=== PATIENT | female | born 1935 | race Caucasian/White ===

== ENCOUNTER → 2020-05-28 13:29 | Outpatient (BNVA) | payer MEDICARE, SELFPAY | PROVIDERS: PCP Internal Medicine; Referring Provider Internal Medicine; Visit Provider Internal Medicine | DX: Z95.2 Presence of prosthetic heart valve (principal); Z51.81 Encounter for therapeutic drug level monitoring; Z79.01 Long term (current) use of anticoagulants | CPT/HCPCS: 85610; 99211 ==

== ENCOUNTER 2020-06-01 12:33 | Outpatient (REF) | payer MEDICARE, SELFPAY ==
[2020-06-01 13:18] LABS: Hematocrit 41.7 % (37-47); Hemoglobin 12.7 g/dl (12.0-16.0); Mean Corpuscular HGB Conc 30.5 g/dl (31.0-35.0); Mean Corpuscular Hemoglobin 28.6 pg (27.0-33.0); Mean Corpuscular Volume 93.9 fL (80-98); Mean Platelet Volume 10.4 fL (9.4-12.3); Platelet Count 162 X10*3/uL (160-400); Red Blood Count 4.44 X10*6/uL (4.20-5.50); Red Cell Distribution Width 14.7 % (11.0-16.0); White Blood Count 7.2 X10*3/uL (4.8-10.8)
[2020-06-01 13:51] LABS: Alanine Aminotransferase 14 U/L (0-31); Albumin Level 3.5 g/dL (3.5-5.0); Alkaline Phosphatase 81 U/L (39-117); Anion Gap 11 (12-20); Aspartate Amino Transferase 20 U/L (5-31); Bilirubin Total 0.9 mg/dL (0.0-1.0); Blood Urea Nitrogen 32 mg/dL (9-16); Calcium 9.1 mg/dL (8.4-10.2); Carbon Dioxide 33 mmol/L (22-29); Chloride 105 mmol/L (96-108); Estimated Glomerular Filt Rate 52; Glucose Random 137 mg/dL (60-115); Magnesium 2.3 mg/dL (1.6-2.6); Potassium 4.6 mmol/l (3.3-5.1); Sodium 144 mmol/L (135-145)
== END 2020-06-01 12:34 | disposition home or self-care (01) ==
LOC: HO.LAB 12:33
PROVIDERS: PCP Internal Medicine; Visit Provider Internal Medicine
DX: I48.20 Chronic atrial fibrillation, unspecified (principal); I10 Essential (primary) hypertension; R73.01 Impaired fasting glucose
CPT/HCPCS: 36415; 80053; 83735; 85027; 85610; 99211

== ENCOUNTER → 2020-06-04 13:28 | Outpatient (BNVA) | payer MEDICARE, SELFPAY | PROVIDERS: PCP Internal Medicine; Visit Provider Internal Medicine | DX: Z95.2 Presence of prosthetic heart valve (principal); Z51.81 Encounter for therapeutic drug level monitoring; Z79.01 Long term (current) use of anticoagulants | CPT/HCPCS: 85610 ==

== ENCOUNTER → 2020-06-08 13:08 | Outpatient (BNVA) | payer MEDICARE, SELFPAY | PROVIDERS: PCP Internal Medicine; Visit Provider Internal Medicine | DX: Z95.2 Presence of prosthetic heart valve (principal); Z51.81 Encounter for therapeutic drug level monitoring; Z79.01 Long term (current) use of anticoagulants | CPT/HCPCS: 85610; 99211 ==

== ENCOUNTER → 2020-06-11 13:04 | Outpatient (BNVA) | payer MEDICARE, SELFPAY | PROVIDERS: PCP Internal Medicine; Visit Provider Internal Medicine | DX: Z95.2 Presence of prosthetic heart valve (principal); Z51.81 Encounter for therapeutic drug level monitoring; Z79.01 Long term (current) use of anticoagulants | CPT/HCPCS: 85610; 99211 ==

== ENCOUNTER → 2020-06-15 11:28 | Outpatient (BNVA) | payer MEDICARE, SELFPAY | PROVIDERS: PCP Internal Medicine; Visit Provider Internal Medicine | DX: Z95.2 Presence of prosthetic heart valve (principal); Z51.81 Encounter for therapeutic drug level monitoring; Z79.01 Long term (current) use of anticoagulants | CPT/HCPCS: 85610 ==

== ENCOUNTER → 2020-06-18 10:59 | Outpatient (BNVA) | payer MEDICARE, SELFPAY | PROVIDERS: PCP Internal Medicine; Referring Provider Internal Medicine; Visit Provider Internal Medicine | DX: Z95.2 Presence of prosthetic heart valve (principal); Z51.81 Encounter for therapeutic drug level monitoring; Z79.01 Long term (current) use of anticoagulants | CPT/HCPCS: 85610; 99211 ==

== ENCOUNTER → 2020-06-22 10:54 | Outpatient (BNVA) | payer MEDICARE, SELFPAY | PROVIDERS: PCP Internal Medicine; Visit Provider Internal Medicine | DX: Z95.2 Presence of prosthetic heart valve (principal); Z51.81 Encounter for therapeutic drug level monitoring; Z79.01 Long term (current) use of anticoagulants | CPT/HCPCS: 85610; 99211 ==

== ENCOUNTER → 2020-06-25 10:49 | Outpatient (BNVA) | payer MEDICARE, SELFPAY | PROVIDERS: PCP Internal Medicine; Visit Provider Internal Medicine | DX: Z95.2 Presence of prosthetic heart valve (principal); Z51.81 Encounter for therapeutic drug level monitoring; Z79.01 Long term (current) use of anticoagulants | CPT/HCPCS: 85610; 99211 ==

== ENCOUNTER → 2020-06-29 11:23 | Outpatient (BNVA) | payer MEDICARE, SELFPAY | PROVIDERS: PCP Internal Medicine; Visit Provider Internal Medicine | DX: Z95.2 Presence of prosthetic heart valve (principal); Z51.81 Encounter for therapeutic drug level monitoring; Z79.01 Long term (current) use of anticoagulants | CPT/HCPCS: 85610; 99211 ==

== ENCOUNTER → 2020-07-02 11:20 | Outpatient (BNVA) | payer MEDICARE, SELFPAY | PROVIDERS: PCP Internal Medicine; Visit Provider Internal Medicine | DX: Z95.2 Presence of prosthetic heart valve (principal); Z79.01 Long term (current) use of anticoagulants; Z51.81 Encounter for therapeutic drug level monitoring | CPT/HCPCS: 85610; 99211 ==

== ENCOUNTER → 2020-07-06 10:54 | Outpatient (BNVA) | payer MEDICARE, SELFPAY | PROVIDERS: PCP Internal Medicine; Visit Provider Internal Medicine | DX: Z95.2 Presence of prosthetic heart valve (principal); Z51.81 Encounter for therapeutic drug level monitoring; Z79.01 Long term (current) use of anticoagulants | CPT/HCPCS: 85610; 99211 ==

== ENCOUNTER → 2020-07-09 10:57 | Outpatient (BNVA) | payer MEDICARE, SELFPAY | PROVIDERS: PCP Internal Medicine; Visit Provider Internal Medicine | DX: Z95.2 Presence of prosthetic heart valve (principal); Z51.81 Encounter for therapeutic drug level monitoring; Z79.01 Long term (current) use of anticoagulants | CPT/HCPCS: 85610; 99211 ==

== ENCOUNTER → 2020-07-13 10:56 | Outpatient (BNVA) | payer MEDICARE, SELFPAY | PROVIDERS: PCP Internal Medicine; Visit Provider Internal Medicine | DX: Z95.2 Presence of prosthetic heart valve (principal); Z51.81 Encounter for therapeutic drug level monitoring; Z79.01 Long term (current) use of anticoagulants | CPT/HCPCS: 85610; 99211 ==

== ENCOUNTER → 2020-07-16 10:57 | Outpatient (BNVA) | payer MEDICARE, SELFPAY | PROVIDERS: PCP Internal Medicine; Visit Provider Internal Medicine | DX: Z95.2 Presence of prosthetic heart valve (principal); Z51.81 Encounter for therapeutic drug level monitoring; Z79.01 Long term (current) use of anticoagulants | CPT/HCPCS: 85610; 99211 ==

== ENCOUNTER → 2020-07-21 11:08 | Outpatient (BNVA) | payer MEDICARE, SELFPAY | PROVIDERS: PCP Internal Medicine; Visit Provider Internal Medicine | DX: Z95.2 Presence of prosthetic heart valve (principal); Z51.81 Encounter for therapeutic drug level monitoring; Z79.01 Long term (current) use of anticoagulants | CPT/HCPCS: 85610; 99211 ==

== ENCOUNTER → 2020-07-26 10:53 | Outpatient (BNVA) | payer MEDICARE, SELFPAY | PROVIDERS: PCP Internal Medicine; Visit Provider Internal Medicine | DX: Z95.2 Presence of prosthetic heart valve (principal); Z51.81 Encounter for therapeutic drug level monitoring; Z79.01 Long term (current) use of anticoagulants | CPT/HCPCS: 85610; 99211 ==

== ENCOUNTER → 2020-07-30 11:16 | Outpatient (BNVA) | payer MEDICARE, SELFPAY | PROVIDERS: PCP Internal Medicine; Visit Provider Internal Medicine | DX: Z95.2 Presence of prosthetic heart valve (principal); Z51.81 Encounter for therapeutic drug level monitoring; Z79.01 Long term (current) use of anticoagulants | CPT/HCPCS: 85610; 99211 ==

== ENCOUNTER → 2020-08-03 10:59 | Outpatient (BNVA) | payer MEDICARE, SELFPAY | PROVIDERS: PCP Internal Medicine; Visit Provider Internal Medicine | DX: Z95.2 Presence of prosthetic heart valve (principal); Z51.81 Encounter for therapeutic drug level monitoring; Z79.01 Long term (current) use of anticoagulants | CPT/HCPCS: 85610; 99211 ==

== ENCOUNTER → 2020-08-06 11:08 | Outpatient (BNVA) | payer MEDICARE, SELFPAY | PROVIDERS: PCP Internal Medicine; Visit Provider Internal Medicine | DX: Z95.2 Presence of prosthetic heart valve (principal); Z51.81 Encounter for therapeutic drug level monitoring; Z79.01 Long term (current) use of anticoagulants | CPT/HCPCS: 85610; 99211 ==

== ENCOUNTER → 2020-08-10 11:13 | Outpatient (BNVA) | payer MEDICARE, SELFPAY | PROVIDERS: PCP Internal Medicine; Visit Provider Internal Medicine | DX: Z95.2 Presence of prosthetic heart valve (principal); Z51.81 Encounter for therapeutic drug level monitoring; Z79.01 Long term (current) use of anticoagulants | CPT/HCPCS: 85610; 99211 ==

== ENCOUNTER → 2020-08-13 11:22 | Outpatient (BNVA) | payer MEDICARE, SELFPAY | PROVIDERS: PCP Internal Medicine; Visit Provider Internal Medicine | DX: Z95.2 Presence of prosthetic heart valve (principal); Z51.81 Encounter for therapeutic drug level monitoring; Z79.01 Long term (current) use of anticoagulants | CPT/HCPCS: 85610; 99211 ==

== ENCOUNTER → 2020-08-16 11:01 | Outpatient (BNVA) | payer MEDICARE, SELFPAY | PROVIDERS: PCP Internal Medicine; Visit Provider Internal Medicine | DX: Z95.2 Presence of prosthetic heart valve (principal); Z51.81 Encounter for therapeutic drug level monitoring; Z79.01 Long term (current) use of anticoagulants | CPT/HCPCS: 85610; 99211 ==

== ENCOUNTER → 2020-08-19 10:57 | Outpatient (BNVA) | payer MEDICARE, SELFPAY | PROVIDERS: PCP Internal Medicine; Visit Provider Internal Medicine | DX: Z95.2 Presence of prosthetic heart valve (principal); Z79.01 Long term (current) use of anticoagulants; Z51.81 Encounter for therapeutic drug level monitoring | CPT/HCPCS: 85610; 99211 ==

== ENCOUNTER → 2020-08-23 11:17 | Outpatient (BNVA) | payer MEDICARE, SELFPAY | PROVIDERS: PCP Internal Medicine; Visit Provider Internal Medicine | DX: Z95.2 Presence of prosthetic heart valve (principal); Z51.81 Encounter for therapeutic drug level monitoring; Z79.01 Long term (current) use of anticoagulants | CPT/HCPCS: 85610; 99211 ==

== ENCOUNTER → 2020-08-26 10:52 | Outpatient (BNVA) | payer MEDICARE, SELFPAY | PROVIDERS: PCP Internal Medicine; Visit Provider Internal Medicine | DX: Z95.2 Presence of prosthetic heart valve (principal); Z51.81 Encounter for therapeutic drug level monitoring; Z79.01 Long term (current) use of anticoagulants | CPT/HCPCS: 85610; 99211 ==

== ENCOUNTER → 2020-08-31 10:54 | Outpatient (BNVA) | payer MEDICARE, SELFPAY | PROVIDERS: PCP Internal Medicine; Visit Provider Internal Medicine | DX: Z95.2 Presence of prosthetic heart valve (principal); Z51.81 Encounter for therapeutic drug level monitoring; Z79.01 Long term (current) use of anticoagulants | CPT/HCPCS: 85610; 99211 ==

== ENCOUNTER → 2020-09-03 10:51 | Outpatient (BNVA) | payer MEDICARE, SELFPAY | PROVIDERS: PCP Internal Medicine; Visit Provider Internal Medicine | DX: Z95.2 Presence of prosthetic heart valve (principal); Z51.81 Encounter for therapeutic drug level monitoring; Z79.01 Long term (current) use of anticoagulants | CPT/HCPCS: 85610; 99211 ==

== ENCOUNTER → 2020-09-07 10:57 | Outpatient (BNVA) | payer MEDICARE, SELFPAY | PROVIDERS: PCP Internal Medicine; Visit Provider Internal Medicine | DX: Z95.2 Presence of prosthetic heart valve (principal); Z51.81 Encounter for therapeutic drug level monitoring; Z79.01 Long term (current) use of anticoagulants | CPT/HCPCS: 85610; 99211 ==

== ENCOUNTER → 2020-09-10 10:54 | Outpatient (BNVA) | payer MEDICARE, SELFPAY | PROVIDERS: PCP Internal Medicine; Visit Provider Internal Medicine | DX: Z95.2 Presence of prosthetic heart valve (principal); Z51.81 Encounter for therapeutic drug level monitoring; Z79.01 Long term (current) use of anticoagulants | CPT/HCPCS: 85610; 99211 ==

== ENCOUNTER → 2020-09-14 11:07 | Outpatient (BNVA) | payer MEDICARE, SELFPAY | PROVIDERS: PCP Internal Medicine; Visit Provider Internal Medicine | DX: Z95.2 Presence of prosthetic heart valve (principal); Z51.81 Encounter for therapeutic drug level monitoring; Z79.01 Long term (current) use of anticoagulants | CPT/HCPCS: 85610; 99211 ==

== ENCOUNTER → 2020-09-17 10:57 | Outpatient (BNVA) | payer MEDICARE, SELFPAY | PROVIDERS: PCP Internal Medicine; Visit Provider Internal Medicine | DX: Z95.2 Presence of prosthetic heart valve (principal); Z51.81 Encounter for therapeutic drug level monitoring; Z79.01 Long term (current) use of anticoagulants | CPT/HCPCS: 85610; 99211 ==

== ENCOUNTER → 2020-09-21 11:09 | Outpatient (BNVA) | payer MEDICARE, SELFPAY | PROVIDERS: PCP Internal Medicine; Visit Provider Internal Medicine | DX: Z95.2 Presence of prosthetic heart valve (principal); Z51.81 Encounter for therapeutic drug level monitoring; Z79.01 Long term (current) use of anticoagulants | CPT/HCPCS: 85610; 99211 ==

== ENCOUNTER → 2020-09-24 10:54 | Outpatient (BNVA) | payer MEDICARE, SELFPAY | PROVIDERS: PCP Internal Medicine; Visit Provider Internal Medicine | DX: Z95.2 Presence of prosthetic heart valve (principal); Z51.81 Encounter for therapeutic drug level monitoring; Z79.01 Long term (current) use of anticoagulants | CPT/HCPCS: 85610; 99211 ==

== ENCOUNTER → 2020-09-28 10:38 | Outpatient (BNVA) | payer MEDICARE, SELFPAY | PROVIDERS: PCP Internal Medicine; Visit Provider Internal Medicine | DX: Z95.2 Presence of prosthetic heart valve (principal); Z51.81 Encounter for therapeutic drug level monitoring; Z79.01 Long term (current) use of anticoagulants | CPT/HCPCS: 85610; 99211 ==

== ENCOUNTER → 2020-10-01 10:47 | Outpatient (BNVA) | payer MEDICARE, SELFPAY | PROVIDERS: PCP Internal Medicine; Visit Provider Internal Medicine | DX: Z95.2 Presence of prosthetic heart valve (principal); Z51.81 Encounter for therapeutic drug level monitoring; Z79.01 Long term (current) use of anticoagulants | CPT/HCPCS: 85610; 99211 ==

== ENCOUNTER → 2020-10-05 10:54 | Outpatient (BNVA) | payer MEDICARE, SELFPAY | PROVIDERS: PCP Internal Medicine; Visit Provider Internal Medicine | DX: Z95.2 Presence of prosthetic heart valve (principal); Z51.81 Encounter for therapeutic drug level monitoring; Z79.01 Long term (current) use of anticoagulants | CPT/HCPCS: 85610; 99211 ==

== ENCOUNTER → 2020-10-08 10:16 | Outpatient (BNVA) | payer MEDICARE, SELFPAY | PROVIDERS: PCP Internal Medicine; Visit Provider Internal Medicine Cardiovascular Disease | DX: Z45.018 Encounter for adjustment and management of other part of cardiac pacemaker (principal); I50.9 Heart failure, unspecified; I42.9 Cardiomyopathy, unspecified; I48.20 Chronic atrial fibrillation, unspecified; Z95.2 Presence of prosthetic heart valve | CPT/HCPCS: 85610; 93005; 99211; 99212 ==

== ENCOUNTER → 2020-10-12 10:51 | Outpatient (BNVA) | payer MEDICARE, SELFPAY | PROVIDERS: PCP Internal Medicine; Visit Provider Internal Medicine | DX: Z95.2 Presence of prosthetic heart valve (principal); Z51.81 Encounter for therapeutic drug level monitoring; Z79.01 Long term (current) use of anticoagulants | CPT/HCPCS: 85610; 99211 ==

== ENCOUNTER → 2020-10-15 10:51 | Outpatient (BNVA) | payer MEDICARE, SELFPAY | PROVIDERS: PCP Internal Medicine; Visit Provider Internal Medicine | DX: Z95.2 Presence of prosthetic heart valve (principal); Z51.81 Encounter for therapeutic drug level monitoring; Z79.01 Long term (current) use of anticoagulants | CPT/HCPCS: 85610; 99211 ==

== ENCOUNTER 2020-10-19 10:09 | Outpatient (REF) | payer MEDICARE, SELFPAY ==
[2020-10-19 11:11] LABS: Anion Gap 10 (12-20); Blood Urea Nitrogen 30 mg/dL (9-16); Calcium 8.9 mg/dL (8.4-10.2); Carbon Dioxide 34 mmol/L (22-29); Chloride 106 mmol/L (96-108); Estimated Glomerular Filt Rate 55; Glucose Random 133 mg/dL (60-115); Potassium 4.2 mmol/L (3.3-5.1); Sodium 146 mmol/L (135-145)
== END 2020-10-19 10:10 | disposition home or self-care (01) ==
LOC: HO.LAB 10:09
PROVIDERS: PCP Internal Medicine; Visit Provider Internal Medicine
DX: I10 Essential (primary) hypertension (principal); N28.9 Disorder of kidney and ureter, unspecified
CPT/HCPCS: 36415; 80048; 85610; 99211

== ENCOUNTER → 2020-10-22 11:00 | Outpatient (BNVA) | payer MEDICARE, SELFPAY | PROVIDERS: PCP Internal Medicine; Visit Provider Internal Medicine | DX: Z95.2 Presence of prosthetic heart valve (principal); Z51.81 Encounter for therapeutic drug level monitoring; Z79.01 Long term (current) use of anticoagulants | CPT/HCPCS: 85610; 99211 ==

== ENCOUNTER → 2020-10-26 10:45 | Outpatient (BNVA) | payer MEDICARE, SELFPAY | PROVIDERS: PCP Internal Medicine; Visit Provider Internal Medicine | DX: Z95.2 Presence of prosthetic heart valve (principal); Z51.81 Encounter for therapeutic drug level monitoring; Z79.01 Long term (current) use of anticoagulants | CPT/HCPCS: 85610; 99211 ==

== ENCOUNTER → 2020-10-29 10:54 | Outpatient (BNVA) | payer MEDICARE, SELFPAY | PROVIDERS: PCP Internal Medicine; Visit Provider Internal Medicine | DX: Z95.2 Presence of prosthetic heart valve (principal); Z51.81 Encounter for therapeutic drug level monitoring; Z79.01 Long term (current) use of anticoagulants | CPT/HCPCS: 85610; 99211 ==

== ENCOUNTER 2020-10-29 22:15 | Emergency (ER) | payer MEDICARE, SELFPAY ==
--- NOTE | ~2020-10-29 | XR_ITS ---
EXAMINATION: XR ELBOW, LEFT CLINICAL INFORMATION: Fall COMPARISON: None TECHNIQUE: AP, lateral, and oblique views of the left elbow. FINDINGS: No acute fracture is seen. There is some amorphous calcification seen adjacent to the lateral epicondyles (see langley images) which could be related to tendinitis. XR/XR elbow LT 2V IMPRESSION: No evidence of an acute injury. Calcification adjacent to lateral epicondyle suggestive of lateral epicondylitis/tennis elbow.
[2020-10-29 22:31] VITALS: BP 140/45; PULSE 59; RESP 16; TEMP 36.6; O2SAT 99; BMI 20.8
--- NOTE | 2020-10-29 22:38 | ED.FALL ---
HPI - Fall General Chief Complaint: Fall Stated Complaint: Fall Time Seen by Provider: 10/29/20 22:29 Source: family Mode of arrival: wheelchair Limitations: physical limitation History of Present Illness HPI Narrative: Patient wheelchair bound with right MCA CVA dementia was with her caregiver lean forward in her chair and fell forward without any significant head injury denies any pain anywhere in the ER patient was able to stand up with help on her feet without any significant pain complaint: fall Related Data Home Medications Medication Instructions Recorded Confirmed atorvastatin 40 mg tablet 40 mg PO DAILY 06/29/20 10/22/20 losartan 25 mg tablet 25 mg PO DAILY 06/29/20 10/22/20 metoprolol tartrate 50 mg tablet 50 mg PO BID 06/29/20 10/22/20 omeprazole 20 mg capsule,delayed 20 mg PO DAILY 06/29/20 10/22/20 release Previous Rx's Medication Instructions Recorded warfarin 2 mg tablet 2 mg PO DAILY #90 tab 05/28/20 warfarin 3 mg tablet 3 mg PO DAILY #90 tab 06/08/20 furosemide 40 mg tablet 40 mg PO DAILY #30 tab 10/08/20 Allergies Allergy/AdvReac Type Severity Reaction Status Date / Time No Known Allergies Allergy Verified 10/29/20 22:34 [No Known Allergies*] Review of Systems Review of Systems: Yes all other systems are reviewed and are negative [facility] Past Medical History Medical History Cardiac pacemaker in situ Cardiomyopathy 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 Social History Social History Smoking Status: Never smoker Use of substances other than those prescribed or required for medical reasons: No Advance Directives: No Physical Exam Vital Signs: Vital Signs: Last Vital Signs Temp 97.9 F 10/29/20 22:31 Pulse 59 10/29/20 22:31 Resp 16 10/29/20 22:31 BP 140/45 H 10/29/20 22:31 Pulse Ox 99 10/29/20 22:31 Body Mass Index 20.8 Const: General: comfortable and no acute distress Orientation/consciousness: oriented to person and oriented to place HENMT: Head: Yes normocephalic and Yes atraumatic Ears: hearing grossly normal bilaterally General nose exam: Normal external nose present Eyes: General: appearance normal, both eyes and all related structures Pupils: Equal, round and reactive pupils present Neck: Neck: Yes normal visual inspection and Yes full ROM Chest: Chest palpation & inspection: normal inspection of the chest and normal palpation of entire chest wall Resp: Effort & Inspection: normal respiratory effort Auscultation: clear to auscultation bilaterally, no crackles and no rales Cardio: Palpation: normal PMI Rate: regular rate Rhythm: regular rhythm Heart sounds: S1 normal heart sound present and S2 normal heart sound present Peripheral pulses: Peripheral pulses 2+ throughout GI: Inspection: Yes normal to inspection Palpation (GI): Soft to palpation and nontender Auscultation: normal bowel sounds Back/Spine/Pelvis: Cervical Spine: cervical ROM normal Thoracic/Lumbar Spine: No thoracic spinal tenderness and No lumbar spinal tenderness Skin: General skin exam: no rashes or lesions noted Neuro: General: oriented to person, oriented to place and other (Left residual hemiparetic) Cranial nerves: Yes Equal, round and reactive pupils present Extrem: Right upper extremity: no joint enlargement Left upper extremity: normal to inspection Shoulder/upper arm images: 1. Small bruise left elbow, good range of movement no focal tenderness MDM - Fall MDM Narrative Medical decision making narrative: Patient's mechanical fall with no significant injuries x-ray of the left elbow is negative for any fracture pelvis is stable will discharge patient home Discharge Plan Discharge Clinical Impression: Fall Qualifiers: Encounter type: initial encounter Qualified Code(s): W19.XXXA - Unspecified fall, initial encounter Patient Disposition: Home, Self-Care Instructions: Fall Prevention (ED) Additional Instructions: Care and cautions as advised Prescriptions: No Action warfarin 2 mg tablet 2 mg PO DAILY Qty: 90 RF: 0 furosemide [Lasix] 40 mg tablet 40 mg PO DAILY Qty: 30 RF: 0 warfarin 3 mg tablet 3 mg PO DAILY Qty: 90 RF: 0 losartan 25 mg tablet 25 mg PO DAILY RF: 0 atorvastatin 40 mg tablet 40 mg PO DAILY RF: 0 omeprazole 20 mg capsule,delayed release(DR/EC) 20 mg PO DAILY RF: 0 metoprolol tartrate 50 mg tablet 50 mg PO BID RF: 0
== END 2020-10-30 00:42 | disposition home or self-care (01) ==
PROVIDERS: Emergency Provider Internal Medicine; PCP Internal Medicine
DX: S50.02XA Contusion of left elbow, initial encounter (principal); W05.0XXA Fall from non-moving wheelchair, initial encounter; F03.90 Unspecified dementia, unspecified severity, without behavioral disturbance, psychotic disturbance, mood disturbance, and anxiety; I48.20 Chronic atrial fibrillation, unspecified; I50.9 Heart failure, unspecified; Y93.9 Activity, unspecified; Y92.019 Unspecified place in single-family (private) house as the place of occurrence of the external cause; Y99.9 Unspecified external cause status; Z95.0 Presence of cardiac pacemaker; Z86.73 Personal history of transient ischemic attack (TIA), and cerebral infarction without residual deficits; Z79.01 Long term (current) use of anticoagulants
CPT/HCPCS: 73070; 99283; 99284

== ENCOUNTER → 2020-11-02 10:52 | Outpatient (BNVA) | payer MEDICARE, SELFPAY | PROVIDERS: PCP Internal Medicine; Visit Provider Internal Medicine | DX: Z95.2 Presence of prosthetic heart valve (principal); Z51.81 Encounter for therapeutic drug level monitoring; Z79.01 Long term (current) use of anticoagulants | CPT/HCPCS: 85610; 99211 ==

== ENCOUNTER → 2020-11-05 10:55 | Outpatient (BNVA) | payer MEDICARE, SELFPAY | PROVIDERS: PCP Internal Medicine; Visit Provider Internal Medicine | DX: Z95.2 Presence of prosthetic heart valve (principal); Z51.81 Encounter for therapeutic drug level monitoring; Z79.01 Long term (current) use of anticoagulants | CPT/HCPCS: 85610; 99211 ==

== ENCOUNTER → 2020-11-09 10:56 | Outpatient (BNVA) | payer MEDICARE, SELFPAY | PROVIDERS: PCP Internal Medicine; Visit Provider Internal Medicine | DX: Z95.2 Presence of prosthetic heart valve (principal); Z51.81 Encounter for therapeutic drug level monitoring; Z79.01 Long term (current) use of anticoagulants | CPT/HCPCS: 85610; 99211 ==

== ENCOUNTER → 2020-11-12 10:57 | Outpatient (BNVA) | payer MEDICARE, SELFPAY | PROVIDERS: PCP Internal Medicine; Visit Provider Internal Medicine | DX: Z95.2 Presence of prosthetic heart valve (principal); Z51.81 Encounter for therapeutic drug level monitoring; Z79.01 Long term (current) use of anticoagulants | CPT/HCPCS: 85610; 99211 ==

== ENCOUNTER → 2020-11-16 11:02 | Outpatient (BNVA) | payer MEDICARE, SELFPAY | PROVIDERS: PCP Internal Medicine; Visit Provider Internal Medicine | DX: Z95.2 Presence of prosthetic heart valve (principal); Z51.81 Encounter for therapeutic drug level monitoring; Z79.01 Long term (current) use of anticoagulants | CPT/HCPCS: 85610; 99211 ==

== ENCOUNTER → 2020-11-19 10:52 | Outpatient (BNVA) | payer MEDICARE, SELFPAY | PROVIDERS: PCP Internal Medicine; Visit Provider Internal Medicine | DX: Z95.2 Presence of prosthetic heart valve (principal); Z51.81 Encounter for therapeutic drug level monitoring; Z79.01 Long term (current) use of anticoagulants | CPT/HCPCS: 85610; 99211 ==

== ENCOUNTER → 2020-11-23 10:56 | Outpatient (BNVA) | payer MEDICARE, SELFPAY | PROVIDERS: PCP Internal Medicine; Visit Provider Internal Medicine | DX: Z95.2 Presence of prosthetic heart valve (principal); Z51.81 Encounter for therapeutic drug level monitoring; Z79.01 Long term (current) use of anticoagulants | CPT/HCPCS: 85610; 99211 ==

== ENCOUNTER → 2020-11-26 11:01 | Outpatient (BNVA) | payer MEDICARE, SELFPAY | PROVIDERS: PCP Internal Medicine; Visit Provider Internal Medicine | DX: Z95.2 Presence of prosthetic heart valve (principal); Z79.01 Long term (current) use of anticoagulants; Z51.81 Encounter for therapeutic drug level monitoring | CPT/HCPCS: 85610; 99211 ==

== ENCOUNTER → 2020-11-30 11:06 | Outpatient (BNVA) | payer MEDICARE, SELFPAY | PROVIDERS: PCP Internal Medicine; Visit Provider Internal Medicine | DX: Z95.2 Presence of prosthetic heart valve (principal); Z79.01 Long term (current) use of anticoagulants; Z51.81 Encounter for therapeutic drug level monitoring | CPT/HCPCS: 85610; 99211 ==

== ENCOUNTER → 2020-12-03 10:53 | Outpatient (BNVA) | payer MEDICARE, SELFPAY | PROVIDERS: PCP Internal Medicine; Visit Provider Internal Medicine | DX: Z95.2 Presence of prosthetic heart valve (principal); Z79.01 Long term (current) use of anticoagulants; Z51.81 Encounter for therapeutic drug level monitoring | CPT/HCPCS: 85610; 99211 ==

== ENCOUNTER → 2020-12-07 11:04 | Outpatient (BNVA) | payer MEDICARE, SELFPAY | PROVIDERS: PCP Internal Medicine; Visit Provider Internal Medicine | DX: Z95.2 Presence of prosthetic heart valve (principal); Z79.01 Long term (current) use of anticoagulants; Z51.81 Encounter for therapeutic drug level monitoring | CPT/HCPCS: 85610; 99211 ==

== ENCOUNTER → 2020-12-10 11:03 | Outpatient (BNVA) | payer MEDICARE, SELFPAY | PROVIDERS: PCP Internal Medicine; Visit Provider Internal Medicine | DX: Z95.2 Presence of prosthetic heart valve (principal); Z79.01 Long term (current) use of anticoagulants; Z51.81 Encounter for therapeutic drug level monitoring | CPT/HCPCS: 85610; 99211 ==

== ENCOUNTER → 2020-12-14 15:25 | Outpatient (BNVA) | payer MEDICARE, SELFPAY | PROVIDERS: PCP Internal Medicine; Visit Provider Internal Medicine | DX: Z95.2 Presence of prosthetic heart valve (principal); Z79.01 Long term (current) use of anticoagulants; Z51.81 Encounter for therapeutic drug level monitoring | CPT/HCPCS: 85610; 99211 ==

== ENCOUNTER → 2020-12-17 15:27 | Outpatient (BNVA) | payer MEDICARE, SELFPAY | PROVIDERS: PCP Internal Medicine; Visit Provider Internal Medicine | DX: Z95.2 Presence of prosthetic heart valve (principal); Z79.01 Long term (current) use of anticoagulants; Z51.81 Encounter for therapeutic drug level monitoring | CPT/HCPCS: 85610; 99211 ==

== ENCOUNTER → 2020-12-21 10:49 | Outpatient (BNVA) | payer MEDICARE, SELFPAY | PROVIDERS: PCP Internal Medicine; Visit Provider Internal Medicine | DX: Z95.2 Presence of prosthetic heart valve (principal); Z51.81 Encounter for therapeutic drug level monitoring; Z79.01 Long term (current) use of anticoagulants | CPT/HCPCS: 85610; 99211 ==

== ENCOUNTER → 2020-12-24 11:02 | Outpatient (BNVA) | payer MEDICARE, SELFPAY | PROVIDERS: PCP Internal Medicine; Visit Provider Internal Medicine | DX: Z95.2 Presence of prosthetic heart valve (principal); Z51.81 Encounter for therapeutic drug level monitoring; Z79.01 Long term (current) use of anticoagulants | CPT/HCPCS: 85610; 99211 ==

== ENCOUNTER → 2020-12-28 10:57 | Outpatient (BNVA) | payer MEDICARE, SELFPAY | PROVIDERS: PCP Internal Medicine; Visit Provider Internal Medicine | DX: Z95.2 Presence of prosthetic heart valve (principal); Z51.81 Encounter for therapeutic drug level monitoring; Z79.01 Long term (current) use of anticoagulants | CPT/HCPCS: 85610; 99211 ==

== ENCOUNTER → 2020-12-30 10:40 | Outpatient (BNVA) | payer MEDICARE, SELFPAY | PROVIDERS: PCP Internal Medicine; Referring Provider Internal Medicine; Visit Provider Internal Medicine Cardiovascular Disease ==

== ENCOUNTER → 2020-12-31 10:51 | Outpatient (BNVA) | payer MEDICARE, SELFPAY | PROVIDERS: PCP Internal Medicine; Visit Provider Internal Medicine | DX: Z95.2 Presence of prosthetic heart valve (principal); Z79.01 Long term (current) use of anticoagulants; Z51.81 Encounter for therapeutic drug level monitoring | CPT/HCPCS: 85610; 99211 ==

== ENCOUNTER → 2021-01-04 11:08 | Outpatient (BNVA) | payer MEDICARE, SELFPAY | PROVIDERS: PCP Internal Medicine; Visit Provider Internal Medicine | DX: Z95.2 Presence of prosthetic heart valve (principal); Z51.81 Encounter for therapeutic drug level monitoring; Z79.01 Long term (current) use of anticoagulants | CPT/HCPCS: 85610; 99211 ==

== ENCOUNTER → 2021-01-07 11:06 | Outpatient (BNVA) | payer MEDICARE, SELFPAY | PROVIDERS: PCP Internal Medicine; Visit Provider Internal Medicine | DX: Z95.2 Presence of prosthetic heart valve (principal); Z51.81 Encounter for therapeutic drug level monitoring; Z79.01 Long term (current) use of anticoagulants | CPT/HCPCS: 85610; 99211 ==

== ENCOUNTER → 2021-01-11 10:58 | Outpatient (BNVA) | payer MEDICARE, SELFPAY | PROVIDERS: PCP Internal Medicine; Visit Provider Internal Medicine | DX: Z95.2 Presence of prosthetic heart valve (principal); Z51.81 Encounter for therapeutic drug level monitoring; Z79.01 Long term (current) use of anticoagulants | CPT/HCPCS: 85610; 99211 ==

== ENCOUNTER → 2021-01-14 10:53 | Outpatient (BNVA) | payer MEDICARE, SELFPAY | PROVIDERS: PCP Internal Medicine; Visit Provider Internal Medicine | DX: Z95.2 Presence of prosthetic heart valve (principal); Z51.81 Encounter for therapeutic drug level monitoring; Z79.01 Long term (current) use of anticoagulants | CPT/HCPCS: 85610; 99211 ==

== ENCOUNTER → 2021-01-18 11:05 | Outpatient (BNVA) | payer MEDICARE, SELFPAY | PROVIDERS: PCP Internal Medicine; Visit Provider Internal Medicine | DX: Z95.2 Presence of prosthetic heart valve (principal); Z51.81 Encounter for therapeutic drug level monitoring; Z79.01 Long term (current) use of anticoagulants | CPT/HCPCS: 85610; 99211 ==

== ENCOUNTER → 2021-01-21 11:00 | Outpatient (BNVA) | payer MEDICARE, SELFPAY | PROVIDERS: PCP Internal Medicine; Visit Provider Internal Medicine | DX: Z95.2 Presence of prosthetic heart valve (principal); Z51.81 Encounter for therapeutic drug level monitoring; Z79.01 Long term (current) use of anticoagulants | CPT/HCPCS: 85610; 99211 ==

== ENCOUNTER → 2021-01-25 10:56 | Outpatient (BNVA) | payer MEDICARE, SELFPAY | PROVIDERS: PCP Internal Medicine; Visit Provider Internal Medicine | DX: Z95.2 Presence of prosthetic heart valve (principal); Z51.81 Encounter for therapeutic drug level monitoring; Z79.01 Long term (current) use of anticoagulants | CPT/HCPCS: 85610; 99211 ==

== ENCOUNTER → 2021-01-28 11:02 | Outpatient (BNVA) | payer MEDICARE, SELFPAY | PROVIDERS: PCP Internal Medicine; Visit Provider Internal Medicine | DX: Z95.2 Presence of prosthetic heart valve (principal); Z51.81 Encounter for therapeutic drug level monitoring; Z79.01 Long term (current) use of anticoagulants | CPT/HCPCS: 85610; 99211 ==

== ENCOUNTER → 2021-02-01 10:56 | Outpatient (BNVA) | payer MEDICARE, SELFPAY | PROVIDERS: PCP Internal Medicine; Visit Provider Internal Medicine | DX: Z95.2 Presence of prosthetic heart valve (principal); Z51.81 Encounter for therapeutic drug level monitoring; Z79.01 Long term (current) use of anticoagulants | CPT/HCPCS: 85610; 99211 ==

== ENCOUNTER → 2021-02-04 10:55 | Outpatient (BNVA) | payer MEDICARE, SELFPAY | PROVIDERS: PCP Internal Medicine; Visit Provider Internal Medicine | DX: Z95.2 Presence of prosthetic heart valve (principal); Z51.81 Encounter for therapeutic drug level monitoring; Z79.01 Long term (current) use of anticoagulants | CPT/HCPCS: 85610; 99211 ==

== ENCOUNTER → 2021-02-08 11:04 | Outpatient (BNVA) | payer MEDICARE, SELFPAY | PROVIDERS: PCP Internal Medicine; Visit Provider Internal Medicine | DX: Z95.2 Presence of prosthetic heart valve (principal); Z51.81 Encounter for therapeutic drug level monitoring; Z79.01 Long term (current) use of anticoagulants | CPT/HCPCS: 85610; 99211 ==

== ENCOUNTER → 2021-02-11 10:55 | Outpatient (BNVA) | payer MEDICARE, SELFPAY | PROVIDERS: PCP Internal Medicine; Visit Provider Internal Medicine | DX: Z95.2 Presence of prosthetic heart valve (principal); Z51.81 Encounter for therapeutic drug level monitoring; Z79.01 Long term (current) use of anticoagulants | CPT/HCPCS: 85610; 99211 ==

== ENCOUNTER → 2021-02-15 15:12 | Outpatient (BNVA) | payer MEDICARE, SELFPAY | PROVIDERS: PCP Internal Medicine; Visit Provider Internal Medicine | DX: Z95.2 Presence of prosthetic heart valve (principal); Z51.81 Encounter for therapeutic drug level monitoring; Z79.01 Long term (current) use of anticoagulants | CPT/HCPCS: 85610; 99211 ==

== ENCOUNTER → 2021-02-18 15:25 | Outpatient (BNVA) | payer MEDICARE, SELFPAY | PROVIDERS: PCP Internal Medicine; Visit Provider Internal Medicine | DX: Z95.2 Presence of prosthetic heart valve (principal); Z51.81 Encounter for therapeutic drug level monitoring; Z79.01 Long term (current) use of anticoagulants | CPT/HCPCS: 85610; 99211 ==

== ENCOUNTER → 2021-02-22 15:25 | Outpatient (BNVA) | payer MEDICARE, SELFPAY | PROVIDERS: PCP Internal Medicine; Visit Provider Internal Medicine | DX: Z95.2 Presence of prosthetic heart valve (principal); Z51.81 Encounter for therapeutic drug level monitoring; Z79.01 Long term (current) use of anticoagulants | CPT/HCPCS: 85610; 99211 ==

== ENCOUNTER → 2021-02-25 15:19 | Outpatient (BNVA) | payer MEDICARE, SELFPAY | PROVIDERS: PCP Internal Medicine; Visit Provider Internal Medicine | DX: Z95.2 Presence of prosthetic heart valve (principal); Z51.81 Encounter for therapeutic drug level monitoring; Z79.01 Long term (current) use of anticoagulants | CPT/HCPCS: 85610; 99211 ==

== ENCOUNTER → 2021-03-01 15:31 | Outpatient (BNVA) | payer MEDICARE, SELFPAY | PROVIDERS: PCP Internal Medicine; Visit Provider Internal Medicine | DX: Z95.2 Presence of prosthetic heart valve (principal); Z51.81 Encounter for therapeutic drug level monitoring; Z79.01 Long term (current) use of anticoagulants | CPT/HCPCS: 85610; 99211 ==

== ENCOUNTER → 2021-03-04 15:20 | Outpatient (BNVA) | payer MEDICARE, SELFPAY | PROVIDERS: PCP Internal Medicine; Visit Provider Internal Medicine | DX: Z95.2 Presence of prosthetic heart valve (principal); Z51.81 Encounter for therapeutic drug level monitoring; Z79.01 Long term (current) use of anticoagulants | CPT/HCPCS: 85610; 99211 ==

== ENCOUNTER → 2021-03-08 15:11 | Outpatient (BNVA) | payer MEDICARE, SELFPAY | PROVIDERS: PCP Internal Medicine; Visit Provider Internal Medicine | DX: Z95.2 Presence of prosthetic heart valve (principal); Z51.81 Encounter for therapeutic drug level monitoring; Z79.01 Long term (current) use of anticoagulants | CPT/HCPCS: 85610; 99211 ==

== ENCOUNTER → 2021-03-11 15:09 | Outpatient (BNVA) | payer MEDICARE, SELFPAY | PROVIDERS: PCP Internal Medicine; Visit Provider Internal Medicine | DX: Z95.2 Presence of prosthetic heart valve (principal); Z51.81 Encounter for therapeutic drug level monitoring; Z79.01 Long term (current) use of anticoagulants | CPT/HCPCS: 85610; 99211 ==

== ENCOUNTER → 2021-03-15 15:25 | Outpatient (BNVA) | payer MEDICARE, SELFPAY | PROVIDERS: PCP Internal Medicine; Visit Provider Internal Medicine | DX: Z95.2 Presence of prosthetic heart valve (principal); Z51.81 Encounter for therapeutic drug level monitoring; Z79.01 Long term (current) use of anticoagulants | CPT/HCPCS: 85610; 99211 ==

== ENCOUNTER → 2021-03-18 15:45 | Outpatient (BNVA) | payer MEDICARE, SELFPAY | PROVIDERS: PCP Internal Medicine; Visit Provider Internal Medicine | DX: Z95.2 Presence of prosthetic heart valve (principal); Z51.81 Encounter for therapeutic drug level monitoring; Z79.01 Long term (current) use of anticoagulants | CPT/HCPCS: 85610; 99211 ==

== ENCOUNTER → 2021-03-22 15:27 | Outpatient (BNVA) | payer MEDICARE, SELFPAY | PROVIDERS: PCP Internal Medicine; Visit Provider Internal Medicine | DX: Z95.2 Presence of prosthetic heart valve (principal); Z51.81 Encounter for therapeutic drug level monitoring; Z79.01 Long term (current) use of anticoagulants | CPT/HCPCS: 85610; 99211 ==

== ENCOUNTER → 2021-03-25 15:28 | Outpatient (BNVA) | payer MEDICARE, SELFPAY | PROVIDERS: PCP Internal Medicine; Visit Provider Internal Medicine | DX: Z95.2 Presence of prosthetic heart valve (principal); Z51.81 Encounter for therapeutic drug level monitoring; Z79.01 Long term (current) use of anticoagulants | CPT/HCPCS: 85610; 99211 ==

== ENCOUNTER → 2021-03-29 15:30 | Outpatient (BNVA) | payer MEDICARE, SELFPAY | PROVIDERS: PCP Internal Medicine; Visit Provider Internal Medicine | DX: Z95.2 Presence of prosthetic heart valve (principal); Z51.81 Encounter for therapeutic drug level monitoring; Z79.01 Long term (current) use of anticoagulants | CPT/HCPCS: 85610; 99211 ==

== ENCOUNTER → 2021-04-01 15:21 | Outpatient (BNVA) | payer MEDICARE, SELFPAY | PROVIDERS: PCP Internal Medicine; Visit Provider Internal Medicine | DX: Z95.2 Presence of prosthetic heart valve (principal); Z51.81 Encounter for therapeutic drug level monitoring; Z79.01 Long term (current) use of anticoagulants | CPT/HCPCS: 85610; 99211 ==

== ENCOUNTER → 2021-04-05 15:33 | Outpatient (BNVA) | payer MEDICARE, SELFPAY | PROVIDERS: PCP Internal Medicine; Visit Provider Internal Medicine | DX: Z95.2 Presence of prosthetic heart valve (principal); Z51.81 Encounter for therapeutic drug level monitoring; Z79.01 Long term (current) use of anticoagulants | CPT/HCPCS: 85610; 99211 ==

== ENCOUNTER → 2021-04-08 15:14 | Outpatient (BNVA) | payer MEDICARE, SELFPAY | PROVIDERS: PCP Internal Medicine; Visit Provider Internal Medicine | DX: Z95.2 Presence of prosthetic heart valve (principal); Z51.81 Encounter for therapeutic drug level monitoring; Z79.01 Long term (current) use of anticoagulants | CPT/HCPCS: 85610; 99211 ==

== ENCOUNTER → 2021-04-12 15:16 | Outpatient (BNVA) | payer MEDICARE, SELFPAY | PROVIDERS: PCP Internal Medicine; Visit Provider Internal Medicine | DX: Z95.2 Presence of prosthetic heart valve (principal); Z51.81 Encounter for therapeutic drug level monitoring; Z79.01 Long term (current) use of anticoagulants | CPT/HCPCS: 85610; 99211 ==

== ENCOUNTER → 2021-04-15 15:22 | Outpatient (BNVA) | payer MEDICARE, SELFPAY | PROVIDERS: PCP Internal Medicine; Visit Provider Internal Medicine | DX: Z95.2 Presence of prosthetic heart valve (principal); Z51.81 Encounter for therapeutic drug level monitoring; Z79.01 Long term (current) use of anticoagulants | CPT/HCPCS: 85610; 99211 ==

== ENCOUNTER → 2021-04-19 15:30 | Outpatient (BNVA) | payer MEDICARE, SELFPAY | PROVIDERS: PCP Internal Medicine; Visit Provider Internal Medicine | DX: Z95.2 Presence of prosthetic heart valve (principal); Z51.81 Encounter for therapeutic drug level monitoring; Z79.01 Long term (current) use of anticoagulants | CPT/HCPCS: 85610; 99211 ==

== ENCOUNTER → 2021-04-22 15:25 | Outpatient (BNVA) | payer MEDICARE, SELFPAY | PROVIDERS: PCP Internal Medicine; Visit Provider Internal Medicine | DX: Z95.2 Presence of prosthetic heart valve (principal); Z51.81 Encounter for therapeutic drug level monitoring; Z79.01 Long term (current) use of anticoagulants | CPT/HCPCS: 85610; 99211 ==

== ENCOUNTER → 2021-04-26 10:56 | Outpatient (BNVA) | payer MEDICARE, SELFPAY | PROVIDERS: PCP Internal Medicine; Visit Provider Internal Medicine | DX: I48.20 Chronic atrial fibrillation, unspecified (principal); Z51.81 Encounter for therapeutic drug level monitoring; Z79.01 Long term (current) use of anticoagulants | CPT/HCPCS: 85610; 99211 ==

== ENCOUNTER → 2021-04-29 11:17 | Outpatient (BNVA) | payer MEDICARE, SELFPAY | PROVIDERS: PCP Internal Medicine; Visit Provider Internal Medicine | DX: I48.20 Chronic atrial fibrillation, unspecified (principal); Z51.81 Encounter for therapeutic drug level monitoring; Z79.01 Long term (current) use of anticoagulants | CPT/HCPCS: 85610; 99211 ==

== ENCOUNTER → 2021-05-03 09:55 | Outpatient (BNVA) | payer MEDICARE, SELFPAY | PROVIDERS: PCP Internal Medicine; Referring Provider Internal Medicine; Visit Provider Internal Medicine Cardiovascular Disease | DX: Z45.018 Encounter for adjustment and management of other part of cardiac pacemaker (principal); I48.20 Chronic atrial fibrillation, unspecified; I50.9 Heart failure, unspecified; Z95.2 Presence of prosthetic heart valve; Z51.81 Encounter for therapeutic drug level monitoring; Z79.01 Long term (current) use of anticoagulants | CPT/HCPCS: 85610; 99211; 99212 ==

== ENCOUNTER → 2021-05-06 11:01 | Outpatient (BNVA) | payer MEDICARE, SELFPAY | PROVIDERS: PCP Internal Medicine; Visit Provider Internal Medicine | DX: I48.20 Chronic atrial fibrillation, unspecified (principal); Z51.81 Encounter for therapeutic drug level monitoring; Z79.01 Long term (current) use of anticoagulants | CPT/HCPCS: 85610; 99211 ==

== ENCOUNTER → 2021-05-10 11:02 | Outpatient (BNVA) | payer MEDICARE, SELFPAY | PROVIDERS: PCP Internal Medicine; Visit Provider Internal Medicine | DX: I48.20 Chronic atrial fibrillation, unspecified (principal); Z51.81 Encounter for therapeutic drug level monitoring; Z79.01 Long term (current) use of anticoagulants | CPT/HCPCS: 85610; 99211 ==

== ENCOUNTER → 2021-05-13 10:59 | Outpatient (BNVA) | payer MEDICARE, SELFPAY | PROVIDERS: PCP Internal Medicine; Visit Provider Internal Medicine | DX: I48.20 Chronic atrial fibrillation, unspecified (principal); Z51.81 Encounter for therapeutic drug level monitoring; Z79.01 Long term (current) use of anticoagulants | CPT/HCPCS: 85610; 99211 ==

== ENCOUNTER → 2021-05-17 10:56 | Outpatient (BNVA) | payer MEDICARE, SELFPAY | PROVIDERS: PCP Internal Medicine; Visit Provider Internal Medicine | DX: I48.20 Chronic atrial fibrillation, unspecified (principal); Z51.81 Encounter for therapeutic drug level monitoring; Z79.01 Long term (current) use of anticoagulants | CPT/HCPCS: 85610; 99211 ==

== ENCOUNTER → 2021-05-20 10:55 | Outpatient (BNVA) | payer MEDICARE, SELFPAY | PROVIDERS: PCP Internal Medicine; Visit Provider Internal Medicine | DX: I48.20 Chronic atrial fibrillation, unspecified (principal); Z51.81 Encounter for therapeutic drug level monitoring; Z79.01 Long term (current) use of anticoagulants | CPT/HCPCS: 85610; 99211 ==

== ENCOUNTER → 2021-05-24 11:00 | Outpatient (BNVA) | payer MEDICARE, SELFPAY | PROVIDERS: PCP Internal Medicine; Visit Provider Internal Medicine | DX: I48.20 Chronic atrial fibrillation, unspecified (principal); Z51.81 Encounter for therapeutic drug level monitoring; Z79.01 Long term (current) use of anticoagulants | CPT/HCPCS: 85610; 99211 ==

== ENCOUNTER → 2021-05-27 10:51 | Outpatient (BNVA) | payer MEDICARE, SELFPAY | PROVIDERS: PCP Internal Medicine; Visit Provider Internal Medicine | DX: I48.20 Chronic atrial fibrillation, unspecified (principal); Z51.81 Encounter for therapeutic drug level monitoring; Z79.01 Long term (current) use of anticoagulants | CPT/HCPCS: 85610; 99211 ==

== ENCOUNTER → 2021-05-31 10:51 | Outpatient (BNVA) | payer MEDICARE, SELFPAY | PROVIDERS: PCP Internal Medicine; Visit Provider Internal Medicine | DX: I48.20 Chronic atrial fibrillation, unspecified (principal); Z51.81 Encounter for therapeutic drug level monitoring; Z79.01 Long term (current) use of anticoagulants | CPT/HCPCS: 85610; 99211 ==

== ENCOUNTER → 2021-06-03 10:55 | Outpatient (BNVA) | payer MEDICARE, SELFPAY | PROVIDERS: PCP Internal Medicine; Visit Provider Internal Medicine | DX: I48.20 Chronic atrial fibrillation, unspecified (principal); Z51.81 Encounter for therapeutic drug level monitoring; Z79.01 Long term (current) use of anticoagulants | CPT/HCPCS: 85610; 99211 ==

== ENCOUNTER → 2021-06-07 10:51 | Outpatient (BNVA) | payer MEDICARE, SELFPAY | PROVIDERS: PCP Internal Medicine; Visit Provider Internal Medicine | DX: I48.20 Chronic atrial fibrillation, unspecified (principal); Z51.81 Encounter for therapeutic drug level monitoring; Z79.01 Long term (current) use of anticoagulants | CPT/HCPCS: 85610; 99211 ==

== ENCOUNTER → 2021-06-10 11:04 | Outpatient (BNVA) | payer MEDICARE, SELFPAY | PROVIDERS: PCP Internal Medicine; Visit Provider Internal Medicine | DX: I48.20 Chronic atrial fibrillation, unspecified (principal); Z51.81 Encounter for therapeutic drug level monitoring; Z79.01 Long term (current) use of anticoagulants | CPT/HCPCS: 85610; 99211 ==

== ENCOUNTER → 2021-06-14 10:55 | Outpatient (BNVA) | payer MEDICARE, SELFPAY | PROVIDERS: PCP Internal Medicine; Visit Provider Internal Medicine | DX: I48.20 Chronic atrial fibrillation, unspecified (principal); Z51.81 Encounter for therapeutic drug level monitoring; Z79.01 Long term (current) use of anticoagulants | CPT/HCPCS: 85610; 99211 ==

== ENCOUNTER → 2021-06-17 10:53 | Outpatient (BNVA) | payer MEDICARE, SELFPAY | PROVIDERS: PCP Internal Medicine; Visit Provider Internal Medicine | DX: I48.20 Chronic atrial fibrillation, unspecified (principal); Z51.81 Encounter for therapeutic drug level monitoring; Z79.01 Long term (current) use of anticoagulants | CPT/HCPCS: 85610; 99211 ==

== ENCOUNTER → 2021-06-21 11:01 | Outpatient (BNVA) | payer MEDICARE, SELFPAY | PROVIDERS: PCP Internal Medicine; Visit Provider Internal Medicine | DX: I48.20 Chronic atrial fibrillation, unspecified (principal); Z51.81 Encounter for therapeutic drug level monitoring; Z79.01 Long term (current) use of anticoagulants | CPT/HCPCS: 85610; 99211 ==

== ENCOUNTER → 2021-06-24 10:58 | Outpatient (BNVA) | payer MEDICARE, SELFPAY | PROVIDERS: PCP Internal Medicine; Visit Provider Internal Medicine | DX: I48.20 Chronic atrial fibrillation, unspecified (principal); Z51.81 Encounter for therapeutic drug level monitoring; Z79.01 Long term (current) use of anticoagulants | CPT/HCPCS: 85610; 99211 ==

== ENCOUNTER → 2021-06-27 10:52 | Outpatient (BNVA) | payer MEDICARE, SELFPAY | PROVIDERS: PCP Internal Medicine; Visit Provider Internal Medicine | DX: I48.20 Chronic atrial fibrillation, unspecified (principal); Z51.81 Encounter for therapeutic drug level monitoring; Z79.01 Long term (current) use of anticoagulants | CPT/HCPCS: 85610; 99211 ==

== ENCOUNTER → 2021-07-01 10:54 | Outpatient (BNVA) | payer MEDICARE, SELFPAY | PROVIDERS: PCP Internal Medicine; Visit Provider Internal Medicine | DX: I48.20 Chronic atrial fibrillation, unspecified (principal); Z51.81 Encounter for therapeutic drug level monitoring; Z79.01 Long term (current) use of anticoagulants | CPT/HCPCS: 85610; 99211 ==

== ENCOUNTER → 2021-07-05 10:59 | Outpatient (BNVA) | payer MEDICARE, SELFPAY | PROVIDERS: PCP Internal Medicine; Visit Provider Internal Medicine | DX: I48.20 Chronic atrial fibrillation, unspecified (principal); Z51.81 Encounter for therapeutic drug level monitoring; Z79.01 Long term (current) use of anticoagulants | CPT/HCPCS: 85610; 99211 ==

== ENCOUNTER → 2021-07-08 10:54 | Outpatient (BNVA) | payer MEDICARE, SELFPAY | PROVIDERS: PCP Internal Medicine; Visit Provider Internal Medicine | DX: I48.20 Chronic atrial fibrillation, unspecified (principal); Z51.81 Encounter for therapeutic drug level monitoring; Z79.01 Long term (current) use of anticoagulants | CPT/HCPCS: 85610; 99211 ==

== ENCOUNTER → 2021-07-12 10:58 | Outpatient (BNVA) | payer MEDICARE, SELFPAY | PROVIDERS: PCP Internal Medicine; Visit Provider Internal Medicine | DX: I48.20 Chronic atrial fibrillation, unspecified (principal); Z51.81 Encounter for therapeutic drug level monitoring; Z79.01 Long term (current) use of anticoagulants | CPT/HCPCS: 85610; 99211 ==

== ENCOUNTER → 2021-07-15 10:52 | Outpatient (BNVA) | payer MEDICARE, SELFPAY | PROVIDERS: PCP Internal Medicine; Visit Provider Internal Medicine | DX: I48.20 Chronic atrial fibrillation, unspecified (principal); Z51.81 Encounter for therapeutic drug level monitoring; Z79.01 Long term (current) use of anticoagulants | CPT/HCPCS: 85610; 99211 ==

== ENCOUNTER → 2021-07-20 10:50 | Outpatient (BNVA) | payer MEDICARE, SELFPAY | PROVIDERS: PCP Internal Medicine; Visit Provider Internal Medicine | DX: I48.20 Chronic atrial fibrillation, unspecified (principal); Z51.81 Encounter for therapeutic drug level monitoring; Z79.01 Long term (current) use of anticoagulants | CPT/HCPCS: 85610; 99211 ==

== ENCOUNTER → 2021-07-25 10:54 | Outpatient (BNVA) | payer MEDICARE, SELFPAY | PROVIDERS: PCP Internal Medicine; Visit Provider Internal Medicine | DX: I48.20 Chronic atrial fibrillation, unspecified (principal); Z51.81 Encounter for therapeutic drug level monitoring; Z79.01 Long term (current) use of anticoagulants | CPT/HCPCS: 85610; 99211 ==

== ENCOUNTER → 2021-07-29 11:13 | Outpatient (BNVA) | payer MEDICARE, SELFPAY | PROVIDERS: PCP Internal Medicine; Visit Provider Internal Medicine | DX: I48.20 Chronic atrial fibrillation, unspecified (principal); Z51.81 Encounter for therapeutic drug level monitoring; Z79.01 Long term (current) use of anticoagulants | CPT/HCPCS: 85610; 99211 ==

== ENCOUNTER → 2021-08-02 10:59 | Outpatient (BNVA) | payer MEDICARE, SELFPAY | PROVIDERS: PCP Internal Medicine; Visit Provider Internal Medicine | DX: I48.20 Chronic atrial fibrillation, unspecified (principal); Z51.81 Encounter for therapeutic drug level monitoring; Z79.01 Long term (current) use of anticoagulants | CPT/HCPCS: 85610; 99211 ==

== ENCOUNTER → 2021-08-05 10:57 | Outpatient (BNVA) | payer MEDICARE, SELFPAY | PROVIDERS: PCP Internal Medicine; Visit Provider Internal Medicine | DX: I48.20 Chronic atrial fibrillation, unspecified (principal); Z51.81 Encounter for therapeutic drug level monitoring; Z79.01 Long term (current) use of anticoagulants | CPT/HCPCS: 85610; 99211 ==

== ENCOUNTER → 2021-08-09 10:58 | Outpatient (BNVA) | payer MEDICARE, SELFPAY | PROVIDERS: PCP Internal Medicine; Visit Provider Internal Medicine | DX: I48.20 Chronic atrial fibrillation, unspecified (principal); Z51.81 Encounter for therapeutic drug level monitoring; Z79.01 Long term (current) use of anticoagulants | CPT/HCPCS: 85610; 99211 ==

== ENCOUNTER → 2021-08-12 10:54 | Outpatient (BNVA) | payer MEDICARE, SELFPAY | PROVIDERS: PCP Internal Medicine; Visit Provider Internal Medicine | DX: I48.20 Chronic atrial fibrillation, unspecified (principal); Z51.81 Encounter for therapeutic drug level monitoring; Z79.01 Long term (current) use of anticoagulants | CPT/HCPCS: 85610; 99211 ==

== ENCOUNTER → 2021-08-15 10:51 | Outpatient (BNVA) | payer MEDICARE, SELFPAY | PROVIDERS: PCP Internal Medicine; Visit Provider Internal Medicine | DX: I48.20 Chronic atrial fibrillation, unspecified (principal); Z51.81 Encounter for therapeutic drug level monitoring; Z79.01 Long term (current) use of anticoagulants | CPT/HCPCS: 85610; 99211 ==

== ENCOUNTER → 2021-08-18 10:59 | Outpatient (BNVA) | payer MEDICARE, SELFPAY | PROVIDERS: PCP Internal Medicine; Visit Provider Internal Medicine | DX: I48.20 Chronic atrial fibrillation, unspecified (principal); Z51.81 Encounter for therapeutic drug level monitoring; Z79.01 Long term (current) use of anticoagulants | CPT/HCPCS: 85610; 99211 ==

== ENCOUNTER → 2021-08-22 10:54 | Outpatient (BNVA) | payer MEDICARE, SELFPAY | PROVIDERS: PCP Internal Medicine; Visit Provider Internal Medicine | DX: I48.20 Chronic atrial fibrillation, unspecified (principal); Z51.81 Encounter for therapeutic drug level monitoring; Z79.01 Long term (current) use of anticoagulants | CPT/HCPCS: 85610; 99211 ==

== ENCOUNTER → 2021-08-25 10:53 | Outpatient (BNVA) | payer MEDICARE, SELFPAY | PROVIDERS: PCP Internal Medicine; Visit Provider Internal Medicine | DX: I48.20 Chronic atrial fibrillation, unspecified (principal); Z51.81 Encounter for therapeutic drug level monitoring; Z79.01 Long term (current) use of anticoagulants | CPT/HCPCS: 85610; 99211 ==

== ENCOUNTER → 2021-08-30 11:05 | Outpatient (BNVA) | payer MEDICARE, SELFPAY | PROVIDERS: PCP Internal Medicine; Visit Provider Internal Medicine | DX: I48.20 Chronic atrial fibrillation, unspecified (principal); Z51.81 Encounter for therapeutic drug level monitoring; Z79.01 Long term (current) use of anticoagulants | CPT/HCPCS: 85610; 99211 ==

== ENCOUNTER 2021-08-31 11:00 | Outpatient (REF) | payer MEDICARE, SELFPAY ==
[2021-08-31 11:12] LABS: Appearance Urine CLOUDY; Color Urine YELLOW; Glucose Urine UA NEG (NEG); Leukocyte Esterase Urine 3+ (NEG); Nitrite Urine NEG (NEG); Urine Blood NEG (NEG); Urine Ketones NEG (NEG); Urine Protein NEG (NEG-TRACE)
[2021-08-31 11:35] LABS: Bacteria Urine 3+ /LPF; RBC Urine 0 /HPF (0); Squamous Epithelial Cell Urine TRACE /LPF
== END 2021-08-31 11:01 | disposition home or self-care (01) ==
LOC: HO.LNP 11:00
PROVIDERS: Internal Medicine; Visit Provider Internal Medicine Geriatric Medicine
DX: N39.0 Urinary tract infection, site not specified (principal); I50.9 Heart failure, unspecified
CPT/HCPCS: 81001; 87086; 87088

== ENCOUNTER 2021-09-02 10:33 | Outpatient (REF) | payer MEDICARE, SELFPAY ==
[2021-09-02 12:10] LABS: Alanine Aminotransferase 11 U/L (0-31); Albumin Level 3.2 g/dL (3.5-5.0); Alkaline Phosphatase 86 U/L (39-117); Anion Gap 9 (12-20); Aspartate Amino Transferase 17 U/L (5-31); Bilirubin Total 0.5 mg/dL (0.0-1.0); Blood Urea Nitrogen 34 mg/dL (9-16); Calcium 9.4 mg/dL (8.4-10.2); Carbon Dioxide 36 mmol/L (22-29); Chloride 107 mmol/L (96-108); Estimated Glomerular Filt Rate 43; Glucose Random 153 mg/dL (60-115); Potassium 4.4 mmol/L (3.3-5.1); Sodium 148 mmol/L (135-145)
== END 2021-09-02 10:34 | disposition home or self-care (01) ==
LOC: HO.LAB 10:33
PROVIDERS: Internal Medicine; PCP Internal Medicine; Visit Provider Internal Medicine
DX: I48.20 Chronic atrial fibrillation, unspecified (principal); Z51.81 Encounter for therapeutic drug level monitoring; Z79.01 Long term (current) use of anticoagulants
CPT/HCPCS: 36415; 80053; 85610; 99211

== ENCOUNTER → 2021-09-06 10:59 | Outpatient (BNVA) | payer MEDICARE, SELFPAY | PROVIDERS: PCP Internal Medicine; Visit Provider Internal Medicine | DX: I48.20 Chronic atrial fibrillation, unspecified (principal); Z51.81 Encounter for therapeutic drug level monitoring; Z79.01 Long term (current) use of anticoagulants | CPT/HCPCS: 85610; 99211 ==

== ENCOUNTER → 2021-09-07 10:01 | Outpatient (BNVA) | payer MEDICARE, SELFPAY | PROVIDERS: PCP Internal Medicine; Referring Provider Internal Medicine; Visit Provider Internal Medicine Cardiovascular Disease | DX: Z45.018 Encounter for adjustment and management of other part of cardiac pacemaker (principal); I50.9 Heart failure, unspecified; I48.20 Chronic atrial fibrillation, unspecified; Z95.2 Presence of prosthetic heart valve | CPT/HCPCS: 99212 ==

== ENCOUNTER 2021-09-09 11:04 | Outpatient (REF) | payer MEDICARE, SELFPAY ==
--- NOTE | ~2021-09-09 | XR_ITS ---
EXAMINATION: XR HIP, RIGHT CLINICAL INFORMATION: Pain COMPARISON: Previous x-ray May 2019 TECHNIQUE: Two views of the right hip and one view of the pelvis. FINDINGS: Bone alignment is normal. No fracture or dislocation is seen. 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 There is moderate arthritis at the left hip joint as well. Bones of the visualized pelvis are unremarkable. There are degenerative changes and scoliosis of the visualized lower lumbar spine. There is evidence of atherosclerotic disease. XR/XR hip RT w PEL1V IMPRESSION: Arthritis. No fracture or dislocation.
== END 2021-09-09 11:05 | disposition home or self-care (01) ==
LOC: HO.XRAY 11:04
PROVIDERS: Absent Provider Internal Medicine; PCP Internal Medicine; Visit Provider Internal Medicine
DX: I48.20 Chronic atrial fibrillation, unspecified (principal); M25.551 Pain in right hip; Z51.81 Encounter for therapeutic drug level monitoring; Z79.01 Long term (current) use of anticoagulants
CPT/HCPCS: 73502; 85610; 99211

== ENCOUNTER → 2021-09-13 10:53 | Outpatient (BNVA) | payer MEDICARE, SELFPAY | PROVIDERS: PCP Internal Medicine; Visit Provider Internal Medicine | DX: I48.20 Chronic atrial fibrillation, unspecified (principal); Z51.81 Encounter for therapeutic drug level monitoring; Z79.01 Long term (current) use of anticoagulants | CPT/HCPCS: 85610; 99211 ==

== ENCOUNTER → 2021-09-16 10:56 | Outpatient (BNVA) | payer MEDICARE, SELFPAY | PROVIDERS: PCP Internal Medicine; Visit Provider Internal Medicine | DX: I48.20 Chronic atrial fibrillation, unspecified (principal); Z51.81 Encounter for therapeutic drug level monitoring; Z79.01 Long term (current) use of anticoagulants | CPT/HCPCS: 85610; 99211 ==

== ENCOUNTER → 2021-09-20 10:55 | Outpatient (BNVA) | payer MEDICARE, SELFPAY | PROVIDERS: PCP Internal Medicine; Visit Provider Internal Medicine | DX: I48.20 Chronic atrial fibrillation, unspecified (principal); Z51.81 Encounter for therapeutic drug level monitoring; Z79.01 Long term (current) use of anticoagulants | CPT/HCPCS: 85610; 99211 ==

== ENCOUNTER 2021-09-23 10:34 | Outpatient (REF) | payer MEDICARE, SELFPAY ==
[2021-09-23 11:05] LABS: MANUAL DIFF FLAG NO
[2021-09-23 11:27] LABS: Basophils Percent Auto 0.3 % (0-2); Eosinophils Absolute Auto 0.2 X10*3/uL (0.0-0.4); Eosinophils Percent Auto 2.8 % (0-4); Hematocrit 36.8 % (37.0-47.0); Hemoglobin 10.8 g/dl (12.0-16.0); Imm Gran Abs Auto 0.03 X10*3/uL (0.00-0.03); Imm Gran Pct Auto 0.4 % (0.0-0.4); Lymphocytes Absolute Auto 0.8 X10*3/uL (1.2-4.9); Lymphocytes Percent Auto 11.5 % (20-40); Mean Corpuscular HGB Conc 29.3 g/dl (31.0-35.0); Mean Corpuscular Hemoglobin 26.5 pg (27.0-33.0); Mean Corpuscular Volume 90.2 fL (80.0-98.0); Mean Platelet Volume 10.6 fL (9.4-12.3); Monocytes Absolute Auto 0.6 X10*3/uL (0.1-1.2); Monocytes Percent Auto 7.8 % (2-11); Neutrophils Absolute Auto 5.4 x10*3/uL (2.0-8.3); Neutrophils Percent Auto 77.2 % (45-73); Platelet Count 240 X10*3/uL (160-400); Red Blood Count 4.08 X10*6/uL (4.20-5.50); Red Cell Distribution Width 19.4 % (11.0-16.0); White Blood Count 7.1 X10*3/uL (4.8-10.8)
[2021-09-23 11:48] LABS: Anion Gap 12 (12-20); Blood Urea Nitrogen 29 mg/dL (9-16); Calcium 9.1 mg/dL (8.4-10.2); Carbon Dioxide 33 mmol/L (22-29); Chloride 106 mmol/L (96-108); Estimated Glomerular Filt Rate 46; Glucose Random 142 mg/dL (60-115); Potassium 4.5 mmol/L (3.3-5.1); Sodium 146 mmol/L (135-145)
== END 2021-09-23 10:35 | disposition home or self-care (01) ==
LOC: HO.LAB 10:34
PROVIDERS: PCP Internal Medicine; Visit Provider Internal Medicine
DX: I48.20 Chronic atrial fibrillation, unspecified (principal); I11.0 Hypertensive heart disease with heart failure; I50.9 Heart failure, unspecified; Z51.81 Encounter for therapeutic drug level monitoring; Z79.01 Long term (current) use of anticoagulants
CPT/HCPCS: 36415; 80048; 85025; 85610; 99211

== ENCOUNTER → 2021-09-27 10:53 | Outpatient (BNVA) | payer MEDICARE, SELFPAY | PROVIDERS: PCP Internal Medicine; Visit Provider Internal Medicine | DX: I48.20 Chronic atrial fibrillation, unspecified (principal); Z51.81 Encounter for therapeutic drug level monitoring; Z79.01 Long term (current) use of anticoagulants | CPT/HCPCS: 85610; 99211 ==

== ENCOUNTER → 2021-09-30 11:02 | Outpatient (BNVA) | payer MEDICARE, SELFPAY | PROVIDERS: PCP Internal Medicine; Visit Provider Internal Medicine | DX: Z13.89 Encounter for screening for other disorder (principal) ==

== ENCOUNTER → 2021-10-04 11:02 | Outpatient (BNVA) | payer MEDICARE, SELFPAY | PROVIDERS: PCP Internal Medicine; Visit Provider Internal Medicine | DX: I48.20 Chronic atrial fibrillation, unspecified (principal); Z51.81 Encounter for therapeutic drug level monitoring; Z79.01 Long term (current) use of anticoagulants | CPT/HCPCS: 85610; 99211 ==

== ENCOUNTER 2021-10-07 11:02 | Outpatient (REF) | payer MEDICARE, SELFPAY ==
--- NOTE | ~2021-10-07 | XR_ITS ---
EXAMINATION: XR FOOT, LEFT CLINICAL INFORMATION: Pain, edema COMPARISON: None TECHNIQUE: AP, lateral, and oblique views of the left foot. FINDINGS: Bones are diffusely osteoporotic. There is severe loss of the metatarsophalangeal joint space of the great toe with bone erosions and periarticular soft tissue swelling. No soft tissue gas. The lateral radiograph shows ill-defined cortex of the dorsal metatarsal head, and minimal calcific debris projects dorsal to the head. Otherwise, the metatarsophalangeal and interphalangeal joints are unremarkable. There is a large plantar calcaneal enthesophyte. There are atherosclerotic peripheral vascular calcifications. XR/XR foot LT min 3V IMPRESSION: The findings of severe joint space loss, erosions and soft tissue swelling at the great toe MTP joint are consistent with an infectious/inflammatory arthropathy. Possible septic arthritis with osteomyelitis at this deformed joint are the main concerns.
== END 2021-10-07 11:03 | disposition home or self-care (01) ==
LOC: HO.XRAY 11:02
PROVIDERS: Absent Provider Internal Medicine; PCP Internal Medicine; Visit Provider Internal Medicine
DX: M79.672 Pain in left foot (principal); R60.9 Edema, unspecified; L53.9 Erythematous condition, unspecified; I48.20 Chronic atrial fibrillation, unspecified; Z51.81 Encounter for therapeutic drug level monitoring; Z79.01 Long term (current) use of anticoagulants
CPT/HCPCS: 73630; 85610; 99211

== ENCOUNTER 2021-10-11 11:08 | Outpatient (REF) | payer MEDICARE, SELFPAY ==
[2021-10-11 12:02] LABS: MANUAL DIFF FLAG NO
[2021-10-11 13:00] LABS: Basophils Percent Auto 0.5 % (0-2); Eosinophils Absolute Auto 0.2 X10*3/uL (0.0-0.4); Eosinophils Percent Auto 2.4 % (0-4); Hematocrit 39.3 % (37.0-47.0); Hemoglobin 11.1 g/dl (12.0-16.0); Imm Gran Abs Auto 0.02 X10*3/uL (0.00-0.03); Imm Gran Pct Auto 0.2 % (0.0-0.4); Lymphocytes Absolute Auto 1.4 X10*3/uL (1.2-4.9); Lymphocytes Percent Auto 17.4 % (20-40); Mean Corpuscular HGB Conc 28.2 g/dl (31.0-35.0); Mean Corpuscular Hemoglobin 26.1 pg (27.0-33.0); Mean Corpuscular Volume 92.5 fL (80.0-98.0); Mean Platelet Volume 10.7 fL (9.4-12.3); Monocytes Absolute Auto 0.6 X10*3/uL (0.1-1.2); Monocytes Percent Auto 7.7 % (2-11); Neutrophils Absolute Auto 5.9 x10*3/uL (2.0-8.3); Neutrophils Percent Auto 71.8 % (45-73); Platelet Count 208 X10*3/uL (160-400); Red Blood Count 4.25 X10*6/uL (4.20-5.50); Red Cell Distribution Width 19.2 % (11.0-16.0); White Blood Count 8.2 X10*3/uL (4.8-10.8)
[2021-10-11 13:16] LABS: Blood Urea Nitrogen 46 mg/dL (9-16); C Reactive Protein 0.35 mg/dL (< or = 0.50); Estimated Glomerular Filt Rate 39
[2021-10-11 13:40] LABS: Erythrocyte Sedimentation Rate 16 MM/HR (0-20)
== END 2021-10-11 11:09 | disposition home or self-care (01) ==
LOC: HO.LAB 11:08
PROVIDERS: Absent Provider Internal Medicine Geriatric Medicine; PCP Internal Medicine; Visit Provider Internal Medicine
DX: I11.0 Hypertensive heart disease with heart failure (principal); I50.9 Heart failure, unspecified; Z86.73 Personal history of transient ischemic attack (TIA), and cerebral infarction without residual deficits; I48.20 Chronic atrial fibrillation, unspecified; Z51.81 Encounter for therapeutic drug level monitoring; Z79.01 Long term (current) use of anticoagulants
CPT/HCPCS: 36415; 82565; 84520; 85025; 85610; 85652; 86140; 99211

== ENCOUNTER 2021-10-14 10:53 | Outpatient (REF) | payer MEDICARE, SELFPAY ==
[2021-10-14 12:03] LABS: Prothrombin Time 66.3 SEC (9.9-13.0)
[2021-10-14 12:08] LABS: INTERNATIONAL NORM RATIO 5.6 (0.9-1.1)
== END 2021-10-14 10:54 | disposition home or self-care (01) ==
LOC: HO.LAB 10:53
PROVIDERS: PCP Internal Medicine; Visit Provider Internal Medicine
DX: I48.20 Chronic atrial fibrillation, unspecified (principal); Z51.81 Encounter for therapeutic drug level monitoring; Z79.01 Long term (current) use of anticoagulants
CPT/HCPCS: 36415; 85610; 99212

== ENCOUNTER → 2021-10-18 11:12 | Outpatient (REF) | payer MEDICARE, SELFPAY ==
--- NOTE | 2021-10-18 11:15 | CA_ITS ---
Transthoracic Echocardiogram Patient (Last, First, Middle): Yudelka Gomez C Gender: Female Date of : 1935 Age: 86 Procedure Date: 10/18/2021 Procedure Type: Transthoracic Echocardiogram Location: OP Height: 167.64 cm Weight: 58.97 kg BSA: 1.67 m2 Heart Rate: bpm BP: 100 / 70 mmHg Machine Molder: Referring MD: Eliel Dumont MD Symptoms: I50.9 - Heart failure, unspecified Study Quality: Fair ECG Rhythm: Ventriculary paced rhythm, PVCs Conclusions: - Due to the regular rhythm, difficult to assess LVEF. Probably 40-50%. - A mechanical prosthetic mitral valve is present. The prosthetic mitral valve appears to be functioning normally. Findings Left Ventricle Normal left ventricular cavity size. There is moderately increased left ventricular wall thickness. The left ventricular systolic function is mildly decreased. Regional wall motion abnormalities can not be excluded due to suboptimal endocardial definition. Diastolic function is indeterminate on the basis of available data. Due to the regular rhythm, difficult to assess LVEF. Probably 40-50%. Right Ventricle Normal right ventricular cavity size. There is mildly decreased right ventricular systolic function. Atria The left atrium is severely dilated. The right atrium is likely dilated. Aortic Valve The aortic valve was not well visualized. There is no aortic valve stenosis. There is mild aortic valve regurgitation. Mitral Valve A mechanical prosthetic mitral valve is present. The prosthetic mitral valve appears to be functioning normally. Mean gradient across the aortic valve 6mmHg at 87/min. Within acceptable limits. Unable to clearly assess for mitral regurgitation due to prosthesis. Doubt any significant regurgitation however. Pulmonic Valve The pulmonic valve was not well visualized. Tricuspid Valve There is mild tricuspid valve regurgitation. There is no evidence of pulmonary hypertension. Great Vessels The aortic annulus, sinuses of valsalva, and asc aorta are normal in size. Venous The inferior vena cava is normal in size and collapses greater than 50% with inspiration. Pericardium/Pleural There is no evidence of pericardial effusion. Prior Study Comparison Changes noted compared to prior study dated: 02/23/2020. LVEF seems higher, but due to frequent PVCs, difficult to assess. Measurements 2D Linear Measurements IVSd: 1.61 0.6-0.9/0.6-1.0 cm LVIDd: 3.45 3.9-5.3/4.2-5.9 cm LVIDd Index: 2.07 2.4-3.2/2.2-3.1 cm/m2 LVIDs: 2.51 2.0-3.6 cm LVPWd: 1.41 0.7-1.1 cm Ao Root: 3.30 2.1-3.5 cm LA Diam: 4.70 2.7-3.8/3.0-4.0 cm LAIDs Index: 2.81 1.5-2.3 cm/m2 LV Mass: 238.97 67-162/88-224 g LV Mass Index: 143.09 43-95/49-115 g/m2 LVOT Diam: 2.00 3.0+(-)1.3 cm 2D Systolic Function EF 4C: 45.90 >55% EF 2C: 54.00 >55% EF BiP: 46.90 >55% Mitral Valve MV VTI: 0.63 MV Pk Karl: 1.79 MV Mn Karl: 0.99 MV Pk Grad: 13.00 MV Mn Grad: 5.00 MV Pk E: 1.38 MV Decel Time: 574.00 E'Lateral: 6.31 E'Medial: 3.48 E/E' Med: 39.70 E/E' Lat: 21.90 PHT: 168.00 MVA PHT: 1.31 MVA Continuity: 0.90 Decel Patrick: 2.41 Aortic Valve AoV Pk Karl: 1.25 AoV Mn Karl: 0.82 AoV VTI: 0.42 AoV Pk Grad: 6.00 Aov Mn Grad: 3.00 NANCY Cont.VTI: 1.37 LVOT LVOT Pk Karl: 0.83 LVOT Mn Karl: 0.57 LVOT VTI: 0.18 LVOT Pk Grad: 3.00 LVOT Mn Grad: 1.00 LVOT Diam: 2.00 LVOT Area: 3.14 Diastolic Function MV Pk E: 1.38 E'Medial: 3.48 E/E' Med: 39.70 E' Laterial: 6.31 E/E' Lat: 21.90 Right Ventricle TAPSE (mm): 16.00 TVS' Karl: 9.00 Tricuspid Valve TR Pk Karl: 2.62 TR Pk Grad: 27.00 Great Vessels Aorta Ao Root-2D: 3.30 2.0-3.7 cm Ao Asc: 2.60 2.1-3.4 cm Pulmonary Valve PV Pk Karl: 1.05 Peak PV Grad: 4.00 Updated in Other Vendor System with Status of Final Tarun Milian MD electronically signed on 10/19/2021 4:51:09 PM with status of Final
== END ==
LOC: HO.CARD 11:12
PROVIDERS: PCP Internal Medicine; Visit Provider Internal Medicine Cardiovascular Disease
DX: I48.20 Chronic atrial fibrillation, unspecified (principal); I50.9 Heart failure, unspecified; Z51.81 Encounter for therapeutic drug level monitoring; Z79.01 Long term (current) use of anticoagulants
CPT/HCPCS: 85610; 93306; 99211

== ENCOUNTER → 2021-10-21 10:28 | Outpatient (BNVA) | payer MEDICARE, SELFPAY | PROVIDERS: PCP Internal Medicine; Visit Provider Internal Medicine | DX: I48.20 Chronic atrial fibrillation, unspecified (principal); Z51.81 Encounter for therapeutic drug level monitoring; Z79.01 Long term (current) use of anticoagulants | CPT/HCPCS: 85610; 99211 ==

== ENCOUNTER 2021-10-25 10:31 | Outpatient (REF) | payer MEDICARE, SELFPAY ==
[2021-10-25 13:03] LABS: Anion Gap 11 (12-20); Blood Urea Nitrogen 32 mg/dL (9-16); Calcium 9.2 mg/dL (8.4-10.2); Carbon Dioxide 32 mmol/L (22-29); Chloride 113 mmol/L (96-108); Estimated Glomerular Filt Rate 46; Glucose Random 124 mg/dL (60-115); Potassium 4.4 mmol/L (3.3-5.1); Sodium 152 mmol/L (135-145)
== END 2021-10-25 10:32 | disposition home or self-care (01) ==
LOC: HO.LAB 10:31
PROVIDERS: PCP Internal Medicine; Visit Provider Internal Medicine
DX: I50.9 Heart failure, unspecified (principal); E87.0 Hyperosmolality and hypernatremia
CPT/HCPCS: 36415; 80048; 85610; 99211

== ENCOUNTER → 2021-10-28 10:49 | Outpatient (BNVA) | payer MEDICARE, SELFPAY | PROVIDERS: PCP Internal Medicine; Visit Provider Internal Medicine | DX: I48.20 Chronic atrial fibrillation, unspecified (principal); Z51.81 Encounter for therapeutic drug level monitoring; Z79.01 Long term (current) use of anticoagulants | CPT/HCPCS: 85610; 99211 ==

== ENCOUNTER 2021-11-01 10:14 | Outpatient (REF) | payer MEDICARE, SELFPAY ==
[2021-11-01 11:37] LABS: Anion Gap 11 (12-20); Blood Urea Nitrogen 32 mg/dL (9-16); Carbon Dioxide 32 mmol/L (22-29); Chloride 108 mmol/L (96-108); Estimated Glomerular Filt Rate 46; Glucose Random 134 mg/dL (60-115); Potassium 4.9 mmol/L (3.3-5.1); Sodium 146 mmol/L (135-145)
== END 2021-11-01 10:15 | disposition home or self-care (01) ==
LOC: HO.LAB 10:14
PROVIDERS: PCP Internal Medicine; Visit Provider Internal Medicine
DX: I48.20 Chronic atrial fibrillation, unspecified (principal); R79.89 Other specified abnormal findings of blood chemistry; Z51.81 Encounter for therapeutic drug level monitoring; Z79.01 Long term (current) use of anticoagulants
CPT/HCPCS: 36415; 80048; 85610; 99211

== ENCOUNTER → 2021-11-04 10:51 | Outpatient (BNVA) | payer MEDICARE, SELFPAY | PROVIDERS: PCP Internal Medicine; Visit Provider Internal Medicine | DX: I48.20 Chronic atrial fibrillation, unspecified (principal); Z51.81 Encounter for therapeutic drug level monitoring; Z79.01 Long term (current) use of anticoagulants | CPT/HCPCS: 85610; 99211 ==

== ENCOUNTER 2021-11-08 10:10 | Outpatient (REF) | payer MEDICARE, SELFPAY ==
[2021-11-08 10:47] LABS: MANUAL DIFF FLAG NO
[2021-11-08 11:37] LABS: Basophils Percent Auto 0.3 % (0-2); Eosinophils Absolute Auto 0.1 X10*3/uL (0.0-0.4); Eosinophils Percent Auto 1.3 % (0-4); Hematocrit 37.5 % (37.0-47.0); Hemoglobin 10.6 g/dl (12.0-16.0); Imm Gran Abs Auto 0.04 X10*3/uL (0.00-0.03); Imm Gran Pct Auto 0.4 % (0.0-0.4); Lymphocytes Absolute Auto 1.2 X10*3/uL (1.2-4.9); Lymphocytes Percent Auto 13.6 % (20-40); Mean Corpuscular HGB Conc 28.3 g/dl (31.0-35.0); Mean Corpuscular Hemoglobin 25.2 pg (27.0-33.0); Mean Corpuscular Volume 89.1 fL (80.0-98.0); Mean Platelet Volume 10.7 fL (9.4-12.3); Monocytes Absolute Auto 0.6 X10*3/uL (0.1-1.2); Monocytes Percent Auto 6.9 % (2-11); Neutrophils Absolute Auto 6.9 x10*3/uL (2.0-8.3); Neutrophils Percent Auto 77.5 % (45-73); Platelet Count 234 X10*3/uL (160-400); Red Blood Count 4.21 X10*6/uL (4.20-5.50); Red Cell Distribution Width 17.2 % (11.0-16.0)
[2021-11-08 12:11] LABS: Erythrocyte Sedimentation Rate 16 MM/HR (0-20)
[2021-11-08 12:12] LABS: Anion Gap 13 (12-20); Blood Urea Nitrogen 35 mg/dL (9-16); C Reactive Protein 0.26 mg/dL (< or = 0.50); Carbon Dioxide 30 mmol/L (22-29); Chloride 103 mmol/L (96-108); Estimated Glomerular Filt Rate 60; Glucose Random 115 mg/dL (60-115); Potassium 4.3 mmol/L (3.3-5.1); Rheumatoid Factor < 15.0 IU/mL (<15.0); Sodium 142 mmol/L (135-145)
[2021-11-11 22:26] LABS: Cyclic Citrullinated Peptide <16 UNITS
== END 2021-11-08 10:11 | disposition home or self-care (01) ==
LOC: HO.LAB 10:10
PROVIDERS: Absent Provider Internal Medicine; PCP Internal Medicine; Visit Provider Physician Assistant
DX: I48.20 Chronic atrial fibrillation, unspecified (principal); E87.0 Hyperosmolality and hypernatremia; I10 Essential (primary) hypertension; M47.813 Spondylosis without myelopathy or radiculopathy, cervicothoracic region; R05.9 Cough, unspecified; M25.50 Pain in unspecified joint; M1A.9XX1 Chronic gout, unspecified, with tophus (tophi); Z51.81 Encounter for therapeutic drug level monitoring; Z79.01 Long term (current) use of anticoagulants
CPT/HCPCS: 36415; 80048; 84550; 85025; 85610; 85652; 86140; 86200; 86431; 99211

== ENCOUNTER 2021-11-09 10:23 | Inpatient (IN) | payer MEDICARE, SELFPAY ==
--- NOTE | ~2021-11-09 | CT_ITS ---
EXAMINATION: CT CHEST WITHOUT CONTRAST CLINICAL INFORMATION: Hypoxia COMPARISON: Previous chest x-ray most recent October [address] February 2019 TECHNIQUE: Multidetector volumetric CT imaging of the chest was done. Axial MIP volume rendering provided. Sagittal and coronal reformatted images were obtained. This CT examination was performed using dose optimization techniques as appropriate, variously including the following: *Automated exposure control *Adjustment of mA and/or kV according to patient size (this includes techniques or standardized protocols for targeted exams where dose is matched to indication/reason for exam; i.e. extremities or head) *Use of iterative reconstruction technique DLP: 191 mGy-cm FINDINGS: Exam is limited due to artifact from respiratory motion. LUNGS: There is right-sided bronchial wall thickening.. There are clustered nodular opacities seen in the right upper and middle lobe probably representing airways disease or small bronchopneumonia. There is volume loss to the left hemithorax with shift of the central mediastinal structures to the left. There is soft tissue opacification of the left main upper and lower lobe bronchi. There is atelectasis or elevation of the left lower lobe and inferior segment of the lingula.. MEDIASTINUM: The heart is enlarged. There may be a small calcification in the left ventricle. There is a dual-chamber pacemaker. There is a prosthetic mitral valve. There is coronary artery calcification. There is no pericardial effusion. The thoracic aorta is upper normal in size. There are small mediastinal lymph nodes. PLEURA: There is a small left pleural effusion. There is no right pleural effusion. AXILLA: No lymphadenopathy. UPPER ABDOMEN: There may be a small stone in the upper pole the left kidney. There is a 6 left renal cyst. OSSEOUS STRUCTURES: Increased thoracic kyphosis and scoliosis and multilevel degenerative disease of the spine. Degenerative changes at the shoulder joints. CT/CT chest wo con IMPRESSION: Limited exam due to respiratory motion. Soft tissue opacification of the left main upper and lower lobe bronchi and atelectasis/consolidation of the left lower lobe and inferior segment of the lingula. Bronchial wall thickening and airways or small bronchopneumonia in the right lung, greatest in the right upper and right middle lobes. Small left pleural effusion. Enlarged heart. Postoperative change from mitral valve replacement. Dual-chamber pacemaker. Coronary artery calcification. Fleischner guidelines were followed.
--- NOTE | ~2021-11-09 | XR_ITS ---
EXAMINATION: XR CHEST CLINICAL INFORMATION: Chest pain. Rule out aspiration pneumonia. COMPARISON: Chest 04/13/2020 TECHNIQUE: Frontal view of the chest was obtained. FINDINGS: The lungs are well-expanded with patchy opacity seen in the right midlung suggestive of infiltrate. Bandlike atelectasis left lower lobe with elevated left hemidiaphragm. The heart size is borderline normal. Pulmonary vascularity is prominent. There is single pacer electrode in the right ventricle. No gross bony abnormality seen except for moderate degenerative changes bilateral shoulder joints.. XR/XR chest 1V IMPRESSION: Right midlung infiltrates suspected. Bandlike atelectasis left lung base with eventration of left hemidiaphragm.
[2021-11-09 10:31] VITALS: BP 153/53; PULSE 60; RESP 17; TEMP 37; O2SAT 96; BMI 20.9
--- NOTE | 2021-11-09 10:58 | ECG_ITS ---
Test Reason : sob Blood Pressure : / mmHG Vent. Rate : 060 BPM Atrial Rate : 051 BPM P-R Int : 000 ms QRS Dur : 164 ms QT Int : 472 ms P-R-T Axes : 000 115 -22 degrees QTc Int : 472 ms Ventricular-paced rhythm with occasional Premature ventricular complexes Abnormal ECG When compared with ECG of 13-APR-2020 08:52, No significant change was found Referred By: Fahad Nettles Electronically Signed By:JULISSA BERRY
--- NOTE | 2021-11-09 11:32 | ED_ITS ---
HPI - General Adult General Chief complaint: Dyspnea Stated complaint: congestion Time Seen by Provider: 11/09/21 10:37 Source: family Mode of arrival: ambulatory Limitations: no limitations History of Present Illness HPI narrative: 86-year-old female history of atrial fibrillation, CHF,, cardiac pacemaker, and stroke presents to the ED for wet cough as per son. He states patient sounds like she had lot of mucus in her lungs and has been coughing. He also states increased swelling of lower extremities due to her primary care provider cutting down on her Lasix. Son denies any fever, or chills. Son states patient is not vaccinated against COVID. Related Data Home Medications Medication Instructions Recorded Confirmed atorvastatin 40 mg tablet 40 mg PO DAILY 06/29/20 11/09/21 losartan 25 mg tablet 25 mg PO DAILY 06/29/20 11/09/21 metoprolol tartrate 50 mg tablet 50 mg PO BID 06/29/20 11/09/21 omeprazole 20 mg capsule,delayed 20 mg PO DAILY 06/29/20 11/09/21 release aspirin 81 mg tablet,delayed 81 mg PO DAILY 05/03/21 11/09/21 release furosemide 20 mg tablet 40 mg PO DAILY tab 11/04/21 11/09/21 prednisone 10 mg tablet 10 mg PO DAILY tab 11/04/21 11/09/21 calcium carbonate 600 mg-vitamin 1 tab PO DAILY 11/09/21 11/09/21 D3 10 mcg (400 unit) tablet (Calcium 600 + D(3)) warfarin 2 mg tablet 2 mg PO SUMOWETHSA@1800 11/09/21 11/09/21 warfarin 3 mg tablet 3 mg PO TUFR@1800 11/09/21 11/09/21 Allergies Allergy/AdvReac Type Severity Reaction Status Date / Time No Known Allergies Allergy Verified 11/08/21 11:01 [No Known Allergies*] Review of Systems Review of Systems: Wet cough. Lung sounds wet floor because as per son. 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 Social History Social History Patient Tobacco Use Status: Former Tobacco user Advance Directives: No Advance Directives Information Provided: No Physical Exam ED Vital Signs: Vital Signs - 24 hr 11/09/21 10:31 11/09/21 11:44 11/09/21 14:21 Temperature 98.6 F Pulse Rate 60 60 60 Respiratory Rate 17 18 17 Blood Pressure 153/53 H 140/52 H 108/52 L Pulse Oximetry 96 96 96 BMI result Body Mass Index 20.9 Const Other: History of stroke. Nonverbal. Son spoke for patient and help move patient around General: cooperative and comfortable HENMT Head: Yes normal to inspection, Yes No palpable skull fracture present, Yes normocephalic and Yes atraumatic Eyes General: appearance normal, both eyes and all related structures Neck Neck: Yes normal visual inspection, Yes full ROM, Yes no lymphadenopathy, Yes no meningeal signs, Yes trachea midline, Yes supple, No anterior neck swelling and No tender Chest Chest palpation & inspection: normal inspection of the chest and normal palpation of entire chest wall Resp Other: History of stroke. Chronic issues with speech. Significant wet cough Auscultation: rales Cardio Jugular venous distension: no JVD Heart sounds: S1 normal heart sound present and S2 normal heart sound present GI Inspection: Yes normal to inspection and No abdominal wall ecchymosis Palpation (GI): Soft to palpation, not firm, nontender, no guarding and not rigid General: No CVA tenderness and Yes no CVA tenderness Back/Spine/Pelvis Back: no CVA tenderness, No CVA tenderness and No back tenderness Skin General skin exam: no rashes or lesions noted and elasticity normal Neuro Other: Chronic left-sided facial droop and weakness. Had to be helped him moved around by son. General: no meningeal signs Extrem Other: Bilateral lower extremity swelling and pitting edema. General: Yes normal to inspection and Yes full ROM Psych Appearance: grossly normal, well kempt and not disheveled Course Course Course Narrative: All sound wet with decreased Lasix prescription will workup for CHF evaluation, was sent COVID test. Also will do x-ray to look for fluid overload versus pneumonia. Vital signs stable Reevaluation(s) Reevaluation #1: Chest x-ray show pneumonia lactic and blood culture ordered. White blood cell count of 12,000. Troponin 97. BNP 526 which is around her baseline. Will start IV antibiotics. Time: 11:39 Reevaluation #2: Patient to be admitted for pneumonia and congestive heart failure. Dr. Tinoco agreeable for admission. Second troponin did not increase by 50%. Patient's vital signs are stable. Patient not in any distress. Time: 16:04 Medical Decision Making MDM Narrative Medical decision making narrative: Pneumonia, CHF exacerbation Lab Data Result diagrams: 11/09/21 11:39 11/09/21 12:37 Labs: Lab Results 11/09/21 11/09/21 11/09/21 Range/Units 11:30 11:39 11:39 WBC 12.8 H (4.8-10.8) X10*3/uL RBC 4.57 (4.20-5.50) X10*6/uL Hgb 11.7 L (12.0-16.0) g/dl Hct 40.2 (37.0-47.0) % MCV 88.0 (80.0-98.0) fL MCH 25.6 L (27.0-33.0) pg MCHC 29.1 L (31.0-35.0) g/dl RDW 17.0 H (11.0-16.0) % Plt Count 238 (160-400) X10*3/uL MPV 10.1 (9.4-12.3) fL Immature Gran % (Auto) 0.6 H (0.0-0.4) % Neut % (Auto) 85.3 H (45-73) % Lymph % (Auto) 6.0 L (20-40) % Traill % (Auto) 7.0 (2-11) % Eos % (Auto) 0.9 (0-4) % Baso % (Auto) 0.2 (0-2) % Lymph # (Auto) 0.8 L (1.2-4.9) X10*3/uL Traill # (Auto) 0.9 (0.1-1.2) X10*3/uL Eos # (Auto) 0.1 (0.0-0.4) X10*3/uL Baso # (Auto) 0.0 (0.0-0.2) X10*3/uL Abs Immat Gran (auto) 0.08 H (0.00-0.03) X10*3/uL Absolute Neuts (auto) 10.9 H (2.0-8.3) x10*3/uL Absolute Nucleated RBC 0.000 (0.0-0.012) X10*3/uL Nucleated RBC % (auto) 0.0 (0.0-0.2) /100WBC PT 30.3 H (9.9-13.0) SEC INR 2.6 H D (0.9-1.1) APTT 45.0 H (24.1-38.0) SEC Sodium (135-145) mmol/L Potassium (3.3-5.1) mmol/L Chloride (96-108) mmol/L Carbon Dioxide (22-29) mmol/L Anion Gap (12-20) BUN (9-16) mg/dL Creatinine (0.5-1.4) mg/dL Estim Creat Clear Calc Estimated GFR Random Glucose (60-115) mg/dL Lactic Acid (0.5-2.0) mmol/L Calcium (8.4-10.2) mg/dL Total Bilirubin (0.0-1.0) mg/dL AST (5-31) U/L ALT (0-31) U/L Alkaline Phosphatase (39-117) U/L Troponin I High Sens (<3.5-17.0) ng/L B-Natriuretic Peptide (<100) pg/mL Total Protein (6.5-8.0) g/dL Albumin (3.5-5.0) g/dL Urine Color Urine Appearance Urine pH (5.0-8.0) Ur Specific [place] (1.005-1.025) Urine Protein (NEG-TRACE) MG/DL Urine Glucose (UA) (NEG) MG/DL Urine Ketones (NEG) MG/DL Urine Blood (NEG) Urine Nitrite (NEG) Ur Leukocyte Esterase (NEG) Urine RBC (0) /HPF Urine WBC (0-4) /HPF Ur Squamous Epith Cells /LPF Urine Bacteria /LPF Influenza Type A (PCR) NEGATIVE (Negative) Influenza Type B (PCR) NEGATIVE (Negative) RSV RNA Qual (PCR) NEGATIVE (Negative) SARS-CoV-2 RNA (RT-PCR) NEGATIVE (Negative) 11/09/21 11/09/21 11/09/21 Range/Units 11:39 11:39 12:37 WBC (4.8-10.8) X10*3/uL RBC (4.20-5.50) X10*6/uL Hgb (12.0-16.0) g/dl Hct (37.0-47.0) % MCV (80.0-98.0) fL MCH (27.0-33.0) pg MCHC (31.0-35.0) g/dl RDW (11.0-16.0) % Plt Count (160-400) X10*3/uL MPV (9.4-12.3) fL Immature Gran % (Auto) (0.0-0.4) % Neut % (Auto) (45-73) % Lymph % (Auto) (20-40) % Traill % (Auto) (2-11) % Eos % (Auto) (0-4) % Baso % (Auto) (0-2) % Lymph # (Auto) (1.2-4.9) X10*3/uL [place]ill # (Auto) (0.1-1.2) X10*3/uL Eos # (Auto) (0.0-0.4) X10*3/uL Baso # (Auto) (0.0-0.2) X10*3/uL Abs Immat Gran (auto) (0.00-0.03) X10*3/uL Absolute Neuts (auto) (2.0-8.3) x10*3/uL Absolute Nucleated RBC (0.0-0.012) X10*3/uL Nucleated RBC % (auto) (0.0-0.2) /100WBC PT (9.9-13.0) SEC INR (0.9-1.1) APTT (24.1-38.0) SEC Sodium 141 (135-145) mmol/L Potassium 4.4 (3.3-5.1) mmol/L Chloride 101 (96-108) mmol/L Carbon Dioxide 32 H (22-29) mmol/L Anion Gap 12 (12-20) BUN 33 H (9-16) mg/dL Creatinine 1.06 (0.5-1.4) mg/dL Estim Creat Clear Calc 36.0 Estimated GFR 49 Random Glucose 166 H (60-115) mg/dL Lactic Acid (0.5-2.0) mmol/L Calcium 9.3 (8.4-10.2) mg/dL Total Bilirubin 0.7 (0.0-1.0) mg/dL AST 21 (5-31) U/L ALT 14 (0-31) U/L Alkaline Phosphatase 97 (39-117) U/L Troponin I High Sens 97.2 H* (<3.5-17.0) ng/L B-Natriuretic Peptide 526 H (<100) pg/mL Total Protein 6.1 L (6.5-8.0) g/dL Albumin 3.3 L (3.5-5.0) g/dL Urine Color Urine Appearance Urine pH (5.0-8.0) Ur Specific [place] (1.005-1.025) Urine Protein (NEG-TRACE) MG/DL Urine Glucose (UA) (NEG) MG/DL Urine Ketones (NEG) MG/DL Urine Blood (NEG) Urine Nitrite (NEG) Ur Leukocyte Esterase (NEG) Urine RBC (0) /HPF Urine WBC (0-4) /HPF Ur Squamous Epith Cells /LPF Urine Bacteria /LPF Influenza Type A (PCR) (Negative) Influenza Type B (PCR) (Negative) RSV RNA Qual (PCR) (Negative) SARS-CoV-2 RNA (RT-PCR) (Negative) 11/09/21 11/09/21 11/09/21 Range/Units 12:37 12:50 14:27 WBC (4.8-10.8) X10*3/uL RBC (4.20-5.50) X10*6/uL Hgb (12.0-16.0) g/dl Hct (37.0-47.0) % MCV (80.0-98.0) fL MCH (27.0-33.0) pg MCHC (31.0-35.0) g/dl RDW (11.0-16.0) % Plt Count (160-400) X10*3/uL MPV (9.4-12.3) fL Immature Gran % (Auto) (0.0-0.4) % Neut % (Auto) (45-73) % Lymph % (Auto) (20-40) % Traill % (Auto) (2-11) % Eos % (Auto) (0-4) % Baso % (Auto) (0-2) % Lymph # (Auto) (1.2-4.9) X10*3/uL Traill # (Auto) (0.1-1.2) X10*3/uL Eos # (Auto) (0.0-0.4) X10*3/uL Baso # (Auto) (0.0-0.2) X10*3/uL Abs Immat Gran (auto) (0.00-0.03) X10*3/uL Absolute Neuts (auto) (2.0-8.3) x10*3/uL Absolute Nucleated RBC (0.0-0.012) X10*3/uL Nucleated RBC % (auto) (0.0-0.2) /100WBC PT (9.9-13.0) SEC INR (0.9-1.1) APTT (24.1-38.0) SEC Sodium (135-145) mmol/L Potassium (3.3-5.1) mmol/L Chloride (96-108) mmol/L Carbon Dioxide (22-29) mmol/L Anion Gap (12-20) BUN (9-16) mg/dL Creatinine (0.5-1.4) mg/dL Estim Creat Clear Calc Estimated GFR Random Glucose (60-115) mg/dL Lactic Acid 1.6 (0.5-2.0) mmol/L Calcium (8.4-10.2) mg/dL Total Bilirubin (0.0-1.0) mg/dL AST (5-31) U/L ALT (0-31) U/L Alkaline Phosphatase (39-117) U/L Troponin I High Sens 99.8 H* (<3.5-17.0) ng/L B-Natriuretic Peptide (<100) pg/mL Total Protein (6.5-8.0) g/dL Albumin (3.5-5.0) g/dL Urine Color YELLOW Urine Appearance CLEAR Urine pH 6.5 (5.0-8.0) Ur Specific [place] 1.010 (1.005-1.025) Urine Protein NEG (NEG-TRACE) MG/DL Urine Glucose (UA) NEG (NEG) MG/DL Urine Ketones NEG (NEG) MG/DL Urine Blood NEG (NEG) Urine Nitrite NEG (NEG) Ur Leukocyte Esterase NEG (NEG) Urine RBC 1-4 (0) /HPF Urine WBC 5-9 H (0-4) /HPF Ur Squamous Epith Cells 1+ /LPF Urine Bacteria TRACE /LPF Influenza Type A (PCR) (Negative) Influenza Type B (PCR) (Negative) RSV RNA Qual (PCR) (Negative) SARS-CoV-2 RNA (RT-PCR) (Negative) ECG Data Interpretation: ventriReticular paced rhythm. Reticular rate 60. QRS 164. QTC 472. Negative STEMI Discharge Plan Discharge Clinical Impression: Congestive heart failure, Community acquired pneumonia Patient Disposition: Admitted As Inpatient
[2021-11-09 11:44] VITALS: BP 140/52; PULSE 60; RESP 18; O2SAT 96
[2021-11-09] MEDS: Furosemide 40 MG/4 ML VIAL IVPUSH (11:44)
[2021-11-09 11:49] LABS: MANUAL DIFF FLAG NO
[2021-11-09 11:51] LABS: Basophils Percent Auto 0.2 % (0-2); Eosinophils Absolute Auto 0.1 X10*3/uL (0.0-0.4); Eosinophils Percent Auto 0.9 % (0-4); Hematocrit 40.2 % (37.0-47.0); Hemoglobin 11.7 g/dl (12.0-16.0); Imm Gran Abs Auto 0.08 X10*3/uL (0.00-0.03); Imm Gran Pct Auto 0.6 % (0.0-0.4); Lymphocytes Absolute Auto 0.8 X10*3/uL (1.2-4.9); Mean Corpuscular HGB Conc 29.1 g/dl (31.0-35.0); Mean Corpuscular Hemoglobin 25.6 pg (27.0-33.0); Mean Platelet Volume 10.1 fL (9.4-12.3); Monocytes Absolute Auto 0.9 X10*3/uL (0.1-1.2); Neutrophils Absolute Auto 10.9 x10*3/uL (2.0-8.3); Neutrophils Percent Auto 85.3 % (45-73); Platelet Count 238 X10*3/uL (160-400); Red Blood Count 4.57 X10*6/uL (4.20-5.50); White Blood Count 12.8 X10*3/uL (4.8-10.8)
[2021-11-09 11:58] LABS: INTERNATIONAL NORM RATIO 2.6 (0.9-1.1); Prothrombin Time 30.3 SEC (9.9-13.0)
[2021-11-09 12:11] LABS: B Type Natriuretic Peptide 526 pg/mL (<100)
[2021-11-09 12:19] LABS: Troponin-I High Sensitivity 97.2 ng/L (<3.5-17.0)
[2021-11-09 12:43] LABS: Influenza A PCR NEGATIVE (Negative); Influenza B PCR NEGATIVE (Negative); Resp Syncy Virus RNA Qual PCR NEGATIVE (Negative); SARS COV2 PCR INHOUSE NEGATIVE (Negative)
[2021-11-09] MEDS: cefTRIAXone sodium 2 GM in 0.9 % Sodium Chloride 50 ML IV (13:00)
[2021-11-09 13:04] LABS: Lactic Acid 1.6 mmol/L (0.5-2.0)
[2021-11-09 13:04] LABS: Appearance Urine CLEAR; Color Urine YELLOW; Glucose Urine UA NEG (NEG); Leukocyte Esterase Urine NEG (NEG); Nitrite Urine NEG (NEG); PH 6.5 (5.0-8.0); Urine Blood NEG (NEG); Urine Ketones NEG (NEG); Urine Protein NEG (NEG-TRACE)
[2021-11-09 13:11] LABS: Alanine Aminotransferase 14 U/L (0-31); Albumin Level 3.3 g/dL (3.5-5.0); Alkaline Phosphatase 97 U/L (39-117); Anion Gap 12 (12-20); Aspartate Amino Transferase 21 U/L (5-31); Bilirubin Total 0.7 mg/dL (0.0-1.0); Blood Urea Nitrogen 33 mg/dL (9-16); Calcium 9.3 mg/dL (8.4-10.2); Carbon Dioxide 32 mmol/L (22-29); Chloride 101 mmol/L (96-108); Estimated Glomerular Filt Rate 49; Glucose Random 166 mg/dL (60-115); Potassium 4.4 mmol/L (3.3-5.1); Sodium 141 mmol/L (135-145); Total Protein 6.1 g/dL (6.5-8.0)
[2021-11-09 13:12] LABS: Squamous Epithelial Cell Urine 1+ /LPF; UACC CULT YES
[2021-11-09 13:13] LABS: Bacteria Urine TRACE /LPF
[2021-11-09] MEDS: Azithromycin 500 MG in 0.9 % Sodium Chloride 250 ML 125 MG IV (13:30)
[2021-11-09 14:21] VITALS: BP 108/52; PULSE 60; RESP 17; O2SAT 96
--- NOTE | 2021-11-09 14:25 | PM.IMHP ---
History of Present Illness Date of Service: 11/09/21 Chief Complaint: wet cough 86 year old female with AFIB resulting in stroke that has affected left side and speech including disphagia, on dysphagia diet, history of CHF NOS, she lives at home with son who was with her at bedside and states that she has been having wet cough for the last couple of days and also has noted swelling in the legs. Recently labs work showed high sodium so PCP --Dr Garcia advise holding lasix, she has also recently been treated for acute gout of left big toe and has been on prednisone batsheva with improvment. 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 Surgical History H/O mitral valve replacement History of permanent cardiac pacemaker placement Social History Household Members: Children and Caregiver Housing: House Do you presently have visiting nurse or other home services: Yes Patient Tobacco Use Status: Former Tobacco user Use of substances other than those prescribed or required for medical reasons: No Currently Displaying Signs/Symptoms of Drug Intoxication Withdrawal: No Advance Directives: No Advance Directives Information Provided: No Advance Directives on File: Yes Do you have thoughts of harming others: None Do you have a plan to hurt others: No Plan Recently lost weight without trying: Yes How much weight loss: 2-13 pounds Eating poorly because of decreased appetite: No Nutrition screen score: 3 Nutrition Risks: Difficulty chewing and Difficulty swallowing Patient : No : No Poor oral hygiene: No Meds Allergies Allergy/AdvReac Type Severity Reaction Status Date / Time No Known Allergies Allergy Verified 11/08/21 11:01 [No Known Allergies*] Active Medications: Current Medications Azithromycin 500 mg/ Sodium (Chloride) 250 mls @ 125 mls/hr IV ONCE ONE Stop: 11/09/21 14:30 Last Admin: 11/09/21 13:30 Dose: 125 mls/hr Documented by: Home Medications Medication Instructions Recorded Confirmed Last Taken Type atorvastatin 40 mg tablet 40 mg PO DAILY 06/29/20 11/09/21 11/08/21 History losartan 25 mg tablet 25 mg PO DAILY 06/29/20 11/09/21 11/09/21 History metoprolol tartrate 50 mg tablet 50 mg PO BID 06/29/20 11/09/21 11/09/21 History omeprazole 20 mg capsule,delayed 20 mg PO DAILY 06/29/20 11/09/21 11/09/21 History release aspirin 81 mg tablet,delayed 81 mg PO DAILY 05/03/21 11/09/21 11/09/21 History release furosemide 20 mg tablet 40 mg PO DAILY tab 11/04/21 11/09/21 11/09/21 History prednisone 10 mg tablet 10 mg PO DAILY tab 11/04/21 11/09/21 11/09/21 History calcium carbonate 600 mg-vitamin 1 tab PO DAILY 11/09/21 11/09/21 11/09/21 History D3 10 mcg (400 unit) tablet (Calcium 600 + D(3)) warfarin 2 mg tablet 2 mg PO SUMOWETHSA@1800 11/09/21 11/09/21 11/08/21 History warfarin 3 mg tablet 3 mg PO TUFR@1800 11/09/21 11/09/21 11/04/21 History Physical Exam Vital Signs and Narrative: Vital Signs: Last Vital Signs Temp 98.6 F 11/09/21 10:31 Pulse 60 11/09/21 14:21 Resp 17 11/09/21 14:21 BP 108/52 L 11/09/21 14:21 Pulse Ox 96 11/09/21 14:21 BMI result Body Mass Index 20.9 Const: Other: Constitutional: Alert, not oriented, no distress Mental Status: Oriented to person, place and time. Eyes: Pupils are equal, round and reactive to light. Ear, Nose and Throat: Oropharynx clear, mucous membranes moist. Ears and nose without eformities Respiratory: Clear to auscultation. No wheezing, rales or rhonchi. Cardiovascular: S1 S2 regular. No murmurs, rubs or gallops. Gastrointestinal: Abdomen soft, non-tender, non-distended. Normal bowel sounds.? Neurologic: Cranial nerves II-XII grossly intact. No focal neurological deficits. Moves all extremities spontaneously.? Skin: No rashes or lesions.? Musculoskeletal: No cyanosis or clubbing. Psychiatric: Normal mood and affect? Results Labs CBC and Chem 7: 11/09/21 11:39 11/10/21 05:31 Labs: Laboratory Results - last 24 hr 11/09/21 11/09/21 11/09/21 11:30 11:39 11:39 MCV 88.0 MCH 25.6 L MCHC 29.1 L RDW 17.0 H Plt Count 238 MPV 10.1 Immature Gran % (Auto) 0.6 H Neut % (Auto) 85.3 H Lymph % (Auto) 6.0 L [place] % (Auto) 7.0 Eos % (Auto) 0.9 Baso % (Auto) 0.2 Lymph # (Auto) 0.8 L [place] # (Auto) 0.9 Eos # (Auto) 0.1 Baso # (Auto) 0.0 Abs Immat Gran (auto) 0.08 H Absolute Neuts (auto) 10.9 H Absolute Nucleated RBC 0.000 Nucleated RBC % (auto) 0.0 PT 30.3 H INR 2.6 H D APTT 45.0 H Anion Gap Estim Creat Clear Calc Estimated GFR Random Glucose Lactic Acid Calcium Total Bilirubin AST ALT Alkaline Phosphatase B-Natriuretic Peptide Total Protein Albumin Urine Color Urine Appearance Urine pH Ur Specific [place] Urine Protein Urine Glucose (UA) Urine Ketones Urine Blood Urine Nitrite Ur Leukocyte Esterase Urine RBC Urine WBC Ur Squamous Epith Cells Urine Bacteria Influenza Type A (PCR) NEGATIVE Influenza Type B (PCR) NEGATIVE RSV RNA Qual (PCR) NEGATIVE SARS-CoV-2 RNA (RT-PCR) NEGATIVE 11/09/21 11/09/21 11/09/21 11:39 12:37 12:37 MCV MCH MCHC RDW Plt Count MPV Immature Gran % (Auto) Neut % (Auto) Lymph % (Auto) [place] % (Auto) Eos % (Auto) Baso % (Auto) Lymph # (Auto) [place] # (Auto) Eos # (Auto) Baso # (Auto) Abs Immat Gran (auto) Absolute Neuts (auto) Absolute Nucleated RBC Nucleated RBC % (auto) PT INR APTT Anion Gap 12 Estim Creat Clear Calc 36.0 Estimated GFR 49 Random Glucose 166 H Lactic Acid 1.6 Calcium 9.3 Total Bilirubin 0.7 AST 21 ALT 14 Alkaline Phosphatase 97 B-Natriuretic Peptide 526 H Total Protein 6.1 L Albumin 3.3 L Urine Color Urine Appearance Urine pH Ur Specific [place] Urine Protein Urine Glucose (UA) Urine Ketones Urine Blood Urine Nitrite Ur Leukocyte Esterase Urine RBC Urine WBC Ur Squamous Epith Cells Urine Bacteria Influenza Type A (PCR) Influenza Type B (PCR) RSV RNA Qual (PCR) SARS-CoV-2 RNA (RT-PCR) 11/09/21 12:50 MCV MCH MCHC RDW Plt Count MPV Immature Gran % (Auto) Neut % (Auto) Lymph % (Auto) [place] % (Auto) Eos % (Auto) Baso % (Auto) Lymph # (Auto) [place] # (Auto) Eos # (Auto) Baso # (Auto) Abs Immat Gran (auto) Absolute Neuts (auto) Absolute Nucleated RBC Nucleated RBC % (auto) PT INR APTT Anion Gap Estim Creat Clear Calc Estimated GFR Random Glucose Lactic Acid Calcium Total Bilirubin AST ALT Alkaline Phosphatase B-Natriuretic Peptide Total Protein Albumin Urine Color YELLOW Urine Appearance CLEAR Urine pH 6.5 Ur Specific [place] 1.010 Urine Protein NEG Urine Glucose (UA) NEG Urine Ketones NEG Urine Blood NEG Urine Nitrite NEG Ur Leukocyte Esterase NEG Urine RBC 1-4 Urine WBC 5-9 H Ur Squamous Epith Cells 1+ Urine Bacteria TRACE Influenza Type A (PCR) Influenza Type B (PCR) RSV RNA Qual (PCR) SARS-CoV-2 RNA (RT-PCR) Imaging Radiologist's Impressions: Impressions Chest X-Ray 11/09/21 11:13 IMPRESSION: Right midlung infiltrates suspected. Bandlike atelectasis left lung base with eventration of left hemidiaphragm. Assessment and Plan (1) Community acquired pneumonia: Status: Acute (2) Congestive heart failure: Status: Acute Plan 86/F with AFIB, stroke with dysphagia, chronic heart failure here with pneumonia, vianney aspriation type of pneumonia and element of acute on chronic systolic heart failure #Aspiration pneumonia--high risk d/t dyphagia from stroke -Treat with IV Ceftriaxone for 24 to 48 and then transition to oral med -aspiration precaution, elevate HOB, apropriate dysphagia diet #Acute on chronic sysotlic heart failure -IV Lasix and hold oral Lasix, follow I/O, salt in take #Recent gout of right left big toe--continue prednisone batsheva #Chronic AFIB--rate controlled, INR is therapeutic, #Dysphagia--speech eval #HLD--Statin #HTN--continue Losartant, Metoprolol Care is expected to span at least 2 midnights for treatment of pneumonia with IV Abx in high risk elderly patient at risk for sepsis and high risk for mortality from PNA DVT prophylaxis--coumadin DNR, spoke to son abou this Quality Stroke Does the patient have a stroke diagnosis?: No VTE Prior VTE?: No VTE Risk Level:: Medical - moderate - high VTE Device Contraindication: Treatment Not Indicated VTE Drug Contraindication: N/A - Med Ordered
[2021-11-09 15:01] LABS: Troponin-I High Sensitivity 99.8 ng/L (<3.5-17.0)
--- NOTE | 2021-11-09 15:20 | PHA.MEDREC ---
Pharmacy Consult ? Medication Reconciliation Pharmacy has completed the medication reconciliation. Med history obtained from pt's son Bryn. Current lasix dose is 40mg daily, warfarin dose is 2 mg daily and prednisone dose is 10 mg
--- NOTE | 2021-11-09 17:50 | PC.NURSE ---
Patient incontinent of large amount of CYU. Washed up and bed changed prior to transfer. Noted to have skin breakdown on sacral/coccyx areas.
[2021-11-09 18:41] VITALS: BP 136/64; PULSE 60; RESP 16; TEMP 37.4; O2SAT 96
[2021-11-09] MEDS: Warfarin Sodium 2 MG TABLET PO (19:48)
[2021-11-09] MEDS: Metoprolol Tartrate 50 MG TABLET PO (19:49)
[2021-11-09] MEDS: Atorvastatin Calcium 40 MG TABLET PO (19:49)
[2021-11-09] MEDS: 0.9 % Sodium Chloride Flush 3 ML SYRINGE IVFLUSH (19:55)
[2021-11-09 23:47] VITALS: BP 132/52; PULSE 65; RESP 16; TEMP 36.5; O2SAT 98
[2021-11-10 04:00] VITALS: BP 128/58; PULSE 56; RESP 16; TEMP 36.9; O2SAT 94
[2021-11-10 06:02] LABS: INTERNATIONAL NORM RATIO 2.9 (0.9-1.1); Prothrombin Time 33.5 SEC (9.9-13.0)
[2021-11-10 06:12] LABS: Anion Gap 12 (12-20); Blood Urea Nitrogen 33 mg/dL (9-16); Calcium 9.5 mg/dL (8.4-10.2); Carbon Dioxide 36 mmol/L (22-29); Chloride 101 mmol/L (96-108); Estimated Glomerular Filt Rate > 60; Glucose Random 92 mg/dL (60-115); Potassium 4.2 mmol/L (3.3-5.1); Sodium 145 mmol/L (135-145)
[2021-11-10 08:00] VITALS: BP 157/62; PULSE 59; RESP 15; TEMP 36.2; O2SAT 98
[2021-11-10] MEDS: cefTRIAXone sodium 1 GM in 0.9 % Sodium Chloride 50 ML IV (08:14)
[2021-11-10] MEDS: Losartan Potassium 25 MG TABLET PO (08:14)
[2021-11-10] MEDS: 0.9 % Sodium Chloride Flush 3 ML SYRINGE IVFLUSH ×2 (08:14→14:49)
[2021-11-10] MEDS: Calcium + Vitamin D 250 MG TABLET PO (08:15)
[2021-11-10] MEDS: Furosemide 40 MG TABLET PO (08:15)
[2021-11-10] MEDS: Aspirin Enteric Coated 81 MG TABLET.DR PO (08:15)
[2021-11-10] MEDS: predniSONE 10 MG TABLET PO (08:15)
[2021-11-10] MEDS: Metoprolol Tartrate 50 MG TABLET PO ×2 (08:15→20:04)
--- NOTE | 2021-11-10 08:50 | P.PNIM_ITS ---
Subjective Subjective Date of Service: 11/10/21 Interval History: f/u on pneumoni interval history: doing better, some residual cough, Review of Systems no fever, +cough Physical Exam Vital Signs: Vital Signs: Last Vital Signs Temp 97.2 F 11/10/21 08:00 Pulse 59 11/10/21 08:00 Resp 15 11/10/21 08:00 BP 157/62 H 11/10/21 08:00 Pulse Ox 98 11/10/21 08:00 BMI result Body Mass Index 20.9 Const: Other: General: AO X, no acute distress Resp: zurdo rhonchi CVS: S1,S2, iregular GI: +BS, NT, no distention Skin: No rash Neuro: motor grossly intact Psych: appropriate affect Objective Data Active Medications Acetaminophen (Acetaminophen 325 Mg Tablet) 650 mg PO Q6H PRN PRN Reason: Pain, Mild (Pain Scale 1-3) Al Hydroxide/Mg Hydroxide (Magnesium Hydrox/Alum Hydrox 30 Ml Oral.Susp) 30 ml PO Q4H PRN PRN Reason: Heartburn/Nausea Aspirin (Aspirin Enteric Coated 81 Mg Tablet.Dr) 81 mg PO DAILY [facility] Last Admin: 11/10/21 08:15 Dose: 81 mg Documented by: BILLIE Atorvastatin Calcium (Atorvastatin Calcium 40 Mg Tablet) 40 mg PO BEDTIME [facility] Last Admin: 11/09/21 19:49 Dose: 40 mg Documented by: DENISHA Calcium Carbonate/Cholecalciferol (Calcium + Vitamin D 250 Mg Tablet) 250 mg PO DAILY [facility] Last Admin: 11/10/21 08:15 Dose: 250 mg Documented by: COTEMA Furosemide (Furosemide 40 Mg Tablet) 40 mg PO DAILY [facility]; Protocol Last Admin: 11/10/21 08:15 Dose: 40 mg Documented by: SHERIEMA Ceftriaxone Sodium 1 gm/ (Sodium Chloride) 50 mls @ 100 mls/hr IV Q24H [facility] Last Admin: 11/10/21 08:14 Dose: 100 mls/hr Documented by: COTEMA Losartan Potassium (Losartan Potassium 25 Mg Tablet) 25 mg PO DAILY [facility]; Protocol Last Admin: 11/10/21 08:14 Dose: 25 mg Documented by: SHERIEMA Melatonin (Melatonin 3 Mg Tablet) 3 mg PO BEDTIME PRN PRN Reason: Insomnia Metoprolol Tartrate (Metoprolol Tartrate 50 Mg Tablet) 50 mg PO BID [facility]; Protocol Last Admin: 11/10/21 08:15 Dose: 50 mg Documented by: COTTHA Omeprazole (Omeprazole 20 Mg Capsule.) 20 mg PO DAILY@0630 [facility] Last Admin: 11/10/21 06:28 Dose: Not Given Documented by: DENISHA Non-Admin Reason: NPO Ondansetron HCl (Ondansetron Hcl 4 Mg/2 Ml Vial) 4 mg IVPUSH Q8H PRN PRN Reason: Nausea and Vomiting Prednisone (Prednisone 10 Mg Tablet) 10 mg PO DAILY [facility] Last Admin: 11/10/21 08:15 Dose: 10 mg Documented by: BILLIE Sodium Chloride (0.9 % Sodium Chloride Flush 3 Ml Syringe) 3 ml IVFLUSH QSHIFT [facility] Last Admin: 11/10/21 08:14 Dose: 3 ml Documented by: BILLIE Warfarin Sodium (Warfarin Sodium 2 Mg Tablet) 2 mg PO SUMOWETHSA@1800 [facility] Last Admin: 11/09/21 19:48 Dose: 2 mg Documented by: DENISHA Warfarin Sodium (Warfarin Sodium 3 Mg Tablet) 3 mg PO TUFR@1800 [facility] Labs CBC & Chem 7: 11/09/21 11:39 11/10/21 05:31 Labs: Laboratory Results - last 24 hr 11/09/21 11/09/21 11/09/21 11:30 11:39 11:39 MCV 88.0 MCH 25.6 L MCHC 29.1 L RDW 17.0 H Plt Count 238 MPV 10.1 Immature Gran % (Auto) 0.6 H Neut % (Auto) 85.3 H Lymph % (Auto) 6.0 L [place] % (Auto) 7.0 Eos % (Auto) 0.9 Baso % (Auto) 0.2 Lymph # (Auto) 0.8 L [place] # (Auto) 0.9 Eos # (Auto) 0.1 Baso # (Auto) 0.0 Abs Immat Gran (auto) 0.08 H Absolute Neuts (auto) 10.9 H Absolute Nucleated RBC 0.000 Nucleated RBC % (auto) 0.0 PT 30.3 H INR 2.6 H D APTT 45.0 H Anion Gap Estim Creat Clear Calc Estimated GFR Random Glucose Lactic Acid Calcium Total Bilirubin AST ALT Alkaline Phosphatase B-Natriuretic Peptide Total Protein Albumin Urine Color Urine Appearance Urine pH Ur Specific [place] Urine Protein Urine Glucose (UA) Urine Ketones Urine Blood Urine Nitrite Ur Leukocyte Esterase Urine RBC Urine WBC Ur Squamous Epith Cells Urine Bacteria Influenza Type A (PCR) NEGATIVE Influenza Type B (PCR) NEGATIVE RSV RNA Qual (PCR) NEGATIVE SARS-CoV-2 RNA (RT-PCR) NEGATIVE 11/09/21 11/09/21 11/09/21 11:39 12:37 12:37 MCV MCH MCHC RDW Plt Count MPV Immature Gran % (Auto) Neut % (Auto) Lymph % (Auto) [place] % (Auto) Eos % (Auto) Baso % (Auto) Lymph # (Auto) [place] # (Auto) Eos # (Auto) Baso # (Auto) Abs Immat Gran (auto) Absolute Neuts (auto) Absolute Nucleated RBC Nucleated RBC % (auto) PT INR APTT Anion Gap 12 Estim Creat Clear Calc 36.0 Estimated GFR 49 Random Glucose 166 H Lactic Acid 1.6 Calcium 9.3 Total Bilirubin 0.7 AST 21 ALT 14 Alkaline Phosphatase 97 B-Natriuretic Peptide 526 H Total Protein 6.1 L Albumin 3.3 L Urine Color Urine Appearance Urine pH Ur Specific [place] Urine Protein Urine Glucose (UA) Urine Ketones Urine Blood Urine Nitrite Ur Leukocyte Esterase Urine RBC Urine WBC Ur Squamous Epith Cells Urine Bacteria Influenza Type A (PCR) Influenza Type B (PCR) RSV RNA Qual (PCR) SARS-CoV-2 RNA (RT-PCR) 11/09/21 11/10/21 11/10/21 12:50 05:31 05:31 MCV MCH MCHC RDW Plt Count MPV Immature Gran % (Auto) Neut % (Auto) Lymph % (Auto) [place] % (Auto) Eos % (Auto) Baso % (Auto) Lymph # (Auto) [place] # (Auto) Eos # (Auto) Baso # (Auto) Abs Immat Gran (auto) Absolute Neuts (auto) Absolute Nucleated RBC Nucleated RBC % (auto) PT 33.5 H INR 2.9 H APTT Anion Gap 12 Estim Creat Clear Calc 45.0 Estimated GFR > 60 Random Glucose 92 Lactic Acid Calcium 9.5 Total Bilirubin AST ALT Alkaline Phosphatase B-Natriuretic Peptide Total Protein Albumin Urine Color YELLOW Urine Appearance CLEAR Urine pH 6.5 Ur Specific [place] 1.010 Urine Protein NEG Urine Glucose (UA) NEG Urine Ketones NEG Urine Blood NEG Urine Nitrite NEG Ur Leukocyte Esterase NEG Urine RBC 1-4 Urine WBC 5-9 H Ur Squamous Epith Cells 1+ Urine Bacteria TRACE Influenza Type A (PCR) Influenza Type B (PCR) RSV RNA Qual (PCR) SARS-CoV-2 RNA (RT-PCR) Assessment and Plan (1) Community acquired pneumonia: Status: Acute Plan 86/F with AFIB, stroke with dysphagia, chronic heart failure here with vianney [place] aspriation type of pneumonia and element of acute on chronic systolic heart failure #Pneumonia, likely aspiration type--high risk d/t dyphagia from stroke -Treat with IV Ceftriaxone for 24 hrs and then transition to oral med Augmentin -aspiration precaution, elevate HOB, apropriate dysphagia diet, speech swallow eval #Acute on chronic sysotlic heart failure -Oral Lasix for now #Recent gout of right left big toe--continue prednisone batsheva for 1 more day #Chronic AFIB--rate controlled, INR is therapeutic, #Dysphagia--speech eval #HLD--Statin #HTN--continue Losartant, Metoprolol Need for inpatient: Need for IV Abx in high risk elderly pt at risk for sepsis, decomepensation and mortality Quality Stroke Does the patient have a stroke diagnosis?: No VTE Prior VTE?: No VTE Risk Level:: Medical - moderate - high VTE Device Contraindication: Treatment Not Indicated VTE Drug Contraindication: N/A - Med Ordered
--- NOTE | 2021-11-10 09:17 | MHC.CM.PN ---
IMM 11/10/21, EMR REVIEWED PT ADMITTED W/PNA AND CHF, CM MET W/PT AND SON WHO IS AT BEDSIDE, PT HAS LIMITED SPEECH D/T STROKE IN 2015, PT IS ABLE TO UNDERSTAND QUESTIONS AND CAN ANSWER SOME HOWEVER SON GIVES DETAILS. PT LIVES W/SON WHO PROVIDES 24HR CARE FOR AND HAS [employer] B[employer] WRITER'S M-F WHILE HE IS AT WORK, SON CARES FOR PT ON W/E'S, SON REPORTS PT USES A W/C HOWEVER CAN STAND AND PIVOT W/ASSISTANCE TO TOILET/BED/ETC, SON REPORTS HOME IS FULLY ACCESSIBLE FOR PT. PCP IS VERIFIED MALINDA RAO OF FILE, COPY OF HCP REQUESTED AND CM CONTACTING PCP OFFICE. D/C PLAN: HOME W/NEW VNA AND RESUMP OF M-F [employer], FAMILY FOR TRANSPORT. PER SON PT'S D/C ABX NEED TO BE CRUSHABLE PT NEEDS ALL MEDS CRUSHED D/T DYSPHAGIA.
--- NOTE | 2021-11-10 10:24 | PC.NURSE ---
Skin/Wound assessment completed today. 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 Redness in her brooke area. Woundres gel applied to sacrum covered with medium foam and Domenic barrier cream applied to brooke area. An incontinent wrap applied between legs for incontinence and wick away urine. Didn't want to use a Purewick due to the rawness in brooke area. Small healed skin tear on left forearm. Turning and repositioning q 2 h
[2021-11-10 11:27] VITALS: BP 134/58; PULSE 52; RESP 20; TEMP 37.4; O2SAT 92
[2021-11-10 14:01] VITALS: BMI 20.9
--- NOTE | 2021-11-10 14:05 | MHC.CLN ---
RE: CONSULT PT WITH INCREASED NUTRITION RISK R/T PRESSURE INJURY DIET RX: PUREED WITH PUDDING THICK LIQ-APPROPRIATE CONFERENCE CENTER MANAGER FOLLOWING FOR APPRORIATE DIET CONSISTENCY RECOMMEND ADDING ENSURE PUDDING TID TO INCREASE KCALS AND PROMOTE WOUND HEALING SUPP PROVIDES 510KCALS, 12G PROTEIN MONITOR PO INTAKE AND SUPP ACCEPTANCE SEE ALSO FULL CLINICAL NUTRITION ASSESSMENT
[2021-11-10 15:02] VITALS: BP 113/43; PULSE 54; RESP 18; TEMP 37.1; O2SAT 91
[2021-11-10] MEDS: Warfarin Sodium 2 MG TABLET PO (17:00)
--- NOTE | 2021-11-10 17:48 | MHC.SL.SWA ---
Speech Pathologist Impression: Risk of Aspiration Due to: Medically Fragile Neurological Condition History of Pneumonia Reduced Cognition Dysphasia Diet Status: Liquid Consistency and Strategies for Safe Swallow: Liquid Intake Recommendation: Pudding Thick Liquid Intake Strategies: Liquids by Teaspoon Only Solid Food Consistency: Dietary Recommendations: Pureed (NDD1) Additional Modifications to Solid Foods: Pt's son advocated for pudding thick liquids, as this is close to what she takes at baseline. Oral Medication Intake: Crushed with Puree Please contact the pharmacy regarding appropriate crushable or liquid drug formulations that are available whenever modified delivery is recommended. Compensatory Strategies and Precautions to be Taken for Safe Swallow: Sitting Upright (90 deg) Liquids from Spoon Alternate Liquids/Solids Rate of Ingestion Change Oral Check Supervision While Eating and Drinking for Safe Swallow: Total Supervision (1:1) Foods to Avoid: Swallowing Recommended Treatments: Compens. Strategy Educat. Recommendation for Speech: Inpatient Speech Therapy Comment: Pt presents with oralpharyngeal dysphagia. At baseline, pt is on a puree diet with liquid thickness slightly greater than honey thick. Pt tolerated puree and honey thick liquid on BSE today, w/ delay of oral phase and pharyngeal phase of swallow and reduced laryngeal elevation on swallow, no clinical signs of aspiration. Pt's son adovcated for PUDDING THICK consistency at this time. Recommend diet of PUREE (NDD1) with PUDDING THICK liquids, w/ PILLS, CRUSHED in Puree. Pt will need close, 1-1 supervision and support during all meals w/ strict/close monitor for signs of aspiration. Pt must be alert and engaged in meal, do not attempt if lethargic. Diet recommendations sent to MD , Marine Designer by secure text. LABORER RAGS to follow M-F while inpt. Frequency/Duration: Date Range for Service Req: Timeline to reassess: Public Relations Studies Director Clinican/Clinical Fellow: No Supervisory Statement: I have reviewed and agree with the student/clinical fellow's documentation: N/A Speech Language Pathologist: Lila Talbert M.A., CCC-LABORER RAGS
[2021-11-10 19:17] VITALS: BP 122/59; PULSE 57; RESP 18; TEMP 36.7; O2SAT 93
[2021-11-10] MEDS: Atorvastatin Calcium 40 MG TABLET PO (20:04)
[2021-11-10 23:24] VITALS: BP 152/68; PULSE 59; RESP 16; TEMP 36.6; O2SAT 90
[2021-11-11] VITALS (8 sets, daily range): BP systolic 108–174; BP diastolic 54–72; PULSE 51–69; RESP 14–20; TEMP 36.4–38.7; O2SAT 76–100
[2021-11-11] MEDS: 0.9 % Sodium Chloride Flush 3 ML SYRINGE IVFLUSH ×4 (00:20→21:25)
[2021-11-11] MEDS: Acetaminophen 325 MG TABLET 650 MG PO (07:18)
[2021-11-11] MEDS: cefTRIAXone sodium 1 GM in 0.9 % Sodium Chloride 50 ML IV (07:18)
[2021-11-11] MEDS: Magnesium Hydrox/Alum Hydrox 30 ML ORAL.SUSP PO (07:18)
[2021-11-11] MEDS: predniSONE 10 MG TABLET PO (07:19)
[2021-11-11] MEDS: Metoprolol Tartrate 50 MG TABLET PO ×2 (07:19→21:22)
[2021-11-11] MEDS: Losartan Potassium 25 MG TABLET PO (07:19)
[2021-11-11] MEDS: Calcium + Vitamin D 250 MG TABLET PO (07:19)
[2021-11-11] MEDS: Furosemide 40 MG TABLET PO (07:20)
[2021-11-11] MEDS: Aspirin Enteric Coated 81 MG TABLET.DR PO (07:20)
[2021-11-11 07:46] LABS: INTERNATIONAL NORM RATIO 2.7 (0.9-1.1); Prothrombin Time 31.8 SEC (9.9-13.0)
--- NOTE | 2021-11-11 08:46 | P.PNIM_ITS ---
Subjective Subjective Date of Service: 11/11/21 Interval History: f/u on pneumoni interval history: was hypoxic this morning with O2 76 on room and required 7 liters to bring back to 92 and now seems comfortable. Review of Systems no fever, +cough Physical Exam Vital Signs: Vital Signs: Last Vital Signs Temp 99.2 F 11/11/21 07:38 Pulse 51 11/11/21 07:38 Resp 20 11/11/21 07:38 BP 138/63 11/11/21 07:38 Pulse Ox 92 11/11/21 07:38 BMI result Body Mass Index 20.9 Const: Other: General: AO X, no acute distress Resp: zurdo rhonchi, no wheezes, CVS: S1,S2, iregular GI: +BS, NT, no distention Skin: No rash Neuro: motor grossly intact Psych: appropriate affect Objective Data Active Medications Acetaminophen (Acetaminophen 325 Mg Tablet) 650 mg PO Q6H PRN PRN Reason: Pain, Mild (Pain Scale 1-3) Last Admin: 11/11/21 07:18 Dose: 650 mg Documented by: BILLIE Al Hydroxide/Mg Hydroxide (Magnesium Hydrox/Alum Hydrox 30 Ml Oral.Susp) 30 ml PO Q4H PRN PRN Reason: Heartburn/Nausea Last Admin: 11/11/21 07:18 Dose: 30 ml Documented by: BILLIE Aspirin (Aspirin Enteric Coated 81 Mg Tablet.) 81 mg PO DAILY [facility] Last Admin: 11/11/21 07:20 Dose: 81 mg Documented by: BILLIE Atorvastatin Calcium (Atorvastatin Calcium 40 Mg Tablet) 40 mg PO BEDTIME [facility] Last Admin: 11/10/21 20:04 Dose: 40 mg Documented by: PAT Calcium Carbonate/Cholecalciferol (Calcium + Vitamin D 250 Mg Tablet) 250 mg PO DAILY [facility] Last Admin: 11/11/21 07:19 Dose: 250 mg Documented by: BILLIE Furosemide (Furosemide 40 Mg Tablet) 40 mg PO DAILY [facility]; Protocol Last Admin: 11/11/21 07:20 Dose: 40 mg Documented by: SHERIEMA Ceftriaxone Sodium 1 gm/ (Sodium Chloride) 50 mls @ 100 mls/hr IV Q24H [facility] Last Infusion: 11/11/21 07:56 Dose: 0 mls/hr Documented by: COTEMA Losartan Potassium (Losartan Potassium 25 Mg Tablet) 25 mg PO DAILY [facility]; Protocol Last Admin: 11/11/21 07:19 Dose: 25 mg Documented by: COTEMA Melatonin (Melatonin 3 Mg Tablet) 3 mg PO BEDTIME PRN PRN Reason: Insomnia Metoprolol Tartrate (Metoprolol Tartrate 50 Mg Tablet) 50 mg PO BID [facility]; Protocol Last Admin: 11/11/21 07:19 Dose: 50 mg Documented by: COTEMA Omeprazole (Omeprazole 20 Mg Capsule.) 20 mg PO DAILY@0630 [facility] Last Admin: 11/11/21 05:27 Dose: Not Given Documented by: ANTOIC Non-Admin Reason: unable to swallow capsule Ondansetron HCl (Ondansetron Hcl 4 Mg/2 Ml Vial) 4 mg IVPUSH Q8H PRN PRN Reason: Nausea and Vomiting Prednisone (Prednisone 10 Mg Tablet) 10 mg PO DAILY [facility] Last Admin: 11/11/21 07:19 Dose: 10 mg Documented by: COTEMA Sodium Chloride (0.9 % Sodium Chloride Flush 3 Ml Syringe) 3 ml IVFLUSH QSHIFT [facility] Last Admin: 11/11/21 07:18 Dose: 3 ml Documented by: COTEMA Warfarin Sodium (Warfarin Sodium 2 Mg Tablet) 2 mg PO SUMOWETHSA@1800 [facility] Last Admin: 11/10/21 17:00 Dose: 2 mg Documented by: COTEMA Warfarin Sodium (Warfarin Sodium 3 Mg Tablet) 3 mg PO TUFR@1800 [facility] Labs CBC & Chem 7: 11/09/21 11:39 11/10/21 05:31 Labs: Laboratory Results - last 24 hr 11/11/21 06:03 PT 31.8 H INR 2.7 H Microbiology Microbiology Results: Microbiology 11/09/21 Unknown Urine Culture - Final Urine Catheterized - Straight Catheter Enterococcus faecalis 11/09/21 12:59 Blood Culture - Preliminary Blood - Venous No growth after 24 hours. 11/09/21 12:37 Blood Culture - Preliminary Blood - Venous No growth after 24 hours. Assessment and Plan (1) Community acquired pneumonia: Status: Acute Plan 86/F with AFIB, stroke with dysphagia, chronic heart failure here with pneumonia, rominaley aspriation type of pneumonia and element of acute on chronic systolic heart failure #Pneumonia, likely aspiration type--high risk d/t dyphagia from strokea, clinically has decompensated overnight with increase in O2 requimen -Escalate Abx to Zosyn, -CT of chest to further charactersized the nature of PNA -aspiration precaution, elevate HOB, apropriate dysphagia diet, speech swallow eval #Acute on chronic sysotolic CHF -Check BNP, and consider IV Lasix #Recent gout of right left big toe--continue prednisone batsheva for 1 more day #Chronic AFIB--rate controlled, INR is therapeutic, #Dysphagia--speech eval #HLD--Statin #HTN--continue Losartant, Metoprolol Need for inpatient: Need for IV Abx in high risk elderly pt at risk for sepsis, decomepensation and mortality--cinically has decompensated as stated above Quality Stroke Does the patient have a stroke diagnosis?: No VTE Prior VTE?: No VTE Risk Level:: Medical - moderate - high VTE Device Contraindication: Treatment Not Indicated VTE Drug Contraindication: N/A - Med Ordered
[2021-11-11 09:50] LABS: B Type Natriuretic Peptide 954 pg/mL (<100)
[2021-11-11] MEDS: Furosemide 20 MG/2 ML VIAL IVPUSH (10:35)
--- NOTE | 2021-11-11 11:06 | MHC.SL.SWA ---
Speech Pathologist Impression: Risk of Aspiration Due to: Medically Fragile Neurological Condition History of Pneumonia Reduced Cognition Dysphasia Diet Status: NPO (Pt is not safe for PO and not a candidate for a MBS at this time) Liquid Consistency and Strategies for Safe Swallow: Liquid Intake Recommendation: NPO Liquid Intake Strategies: NPO Solid Food Consistency: Dietary Recommendations: NPO Additional Modifications to Solid Foods: Pt's son, advocated for pudding thick liquids, as this is close to what she takes at baseline as well as pureed solids. We discussed current presentation with poor oral response and concerning breath sounds and we will hold all PO for at least 24 hours. Oral Medication Intake: NPO Please contact the pharmacy regarding appropriate crushable or liquid drug formulations that are available whenever modified delivery is recommended. Compensatory Strategies and Precautions to be Taken for Safe Swallow: Sitting Upright (90 deg) Liquids from Spoon Alternate Liquids/Solids Rate of Ingestion Change Oral Check Supervision While Eating and Drinking for Safe Swallow: Total Supervision (1:1) Foods to Avoid: Very sticky foods Swallowing Recommended Treatments: Compens. Strategy Educat. Recommendation for Speech: Inpatient Speech Therapy Comment: Pt presents with oralpharyngeal dysphagia. At baseline, pt is on a puree diet with liquid thickness slightly greater than honey thick. Pt DID NOT tolerated puree and honey thick liquid at breakfast and subsequently required 7L O2 by NC and continued with wet VQ and breath sounds that are not cleared with prompts to cough. She will occassionally cough when she is moved but not upon command. Date Range for Service Req: Timeline to reassess: 24-48 hours Body Liner Clinican/Clinical Fellow: No Supervisory Statement: I have reviewed and agree with the student/clinical fellow's documentation: N/A Speech Language Pathologist: Olivia Caraballo M.A., CCC-TIMBER KILLER
--- NOTE | 2021-11-11 11:51 | MHC.CLN ---
F/U SEEN BY SUPERVISING BROKER 11/11/21 WITH RECOMMENDATION FOR NPO FOR AT LEAST 24 HOURS. PATIENT WITH DX PNEUMONIA AND CHF. STAGE II PRESSURE AREA TO SACRUM. FOLLOW SUPERVISING BROKER RECS FOR POTENTIAL DIET UPGRADE.
--- NOTE | 2021-11-11 12:04 | MHC.CM.PN ---
Emr reviewed, per speech pt will remain NPO for 24hrs, per hospitalist antic pt will remain inpt through w/e w/d/c early next week, cm will cont to follow and requesting vna for pt however he does not want PCP taking over coumadin and would like to cont to bring pt [place] [facility] [place], no preference on vna, referrals placed, cm will cont to follow d/c needs.
--- NOTE | 2021-11-11 14:37 | PC.NURSE ---
0730 this morning patient calling out for help, on assessment patient lips were purple and patient had a nonproductive wet cough. O2 sat on room air was 76% patient placed on 7L [place] and recovered to 92%. Dr. Shrestha made aware and at bedside to assess patient. Stat orders placed for BNP lab and CT chest. BNP back at 954, dose of IV lasix ordered and given. Patient O2 sat now 95% on 7L [place]. Will continue to monitor respiratory status.
--- NOTE | 2021-11-11 14:41 | PC.NURSE ---
1300, This RN noticed patient had not voided all day, bladder scan was 467ml. Dr. Shrestha made aware. Order for gonsales catheter for urinary retention placed. Gonsales catheter inserted and drained 500ml.
[2021-11-11] MEDS: Warfarin Sodium 3 MG TABLET PO (17:24)
[2021-11-11] MEDS: Piperacillin Sodium/Tazobactam 3.375 GM in 0.9 % Sodium Chloride 50 ML IV (23:53)
--- NOTE | 2021-11-12 03:36 | PC.NURSE ---
11/11/211914 [id number]'s on 2L [place].increased o2 to 7L [place].02sat-92%.
--- NOTE | 2021-11-12 03:41 | PC.NURSE ---
11/11/21 2330 temp-101.6. notified.started pt on iv zosyn.ice packs applied to neck and zurdo arm pits.npo unable to take po tylenol.
[2021-11-12 03:56] VITALS: BP 124/66; PULSE 69; RESP 18; TEMP 36.9; O2SAT 92
--- NOTE | 2021-11-12 04:16 | PC.NURSE ---
temperature down 98.4 orally
[2021-11-12 05:56] LABS: INTERNATIONAL NORM RATIO 3.2 (0.9-1.1); Prothrombin Time 37.2 SEC (9.9-13.0)
[2021-11-12] MEDS: Piperacillin Sodium/Tazobactam 3.375 GM in 0.9 % Sodium Chloride 50 ML IV ×4 (06:06→23:26)
[2021-11-12 07:24] VITALS: BP 122/56; PULSE 76; RESP 18; TEMP 36.5; O2SAT 95
[2021-11-12 07:26] LABS: Hematocrit 40.3 % (37.0-47.0); Hemoglobin 11.8 g/dl (12.0-16.0); Mean Corpuscular HGB Conc 29.3 g/dl (31.0-35.0); Mean Corpuscular Hemoglobin 25.4 pg (27.0-33.0); Mean Corpuscular Volume 86.9 fL (80.0-98.0); Mean Platelet Volume 10.7 fL (9.4-12.3); Platelet Count 229 X10*3/uL (160-400); Red Blood Count 4.64 X10*6/uL (4.20-5.50); Red Cell Distribution Width 17.4 % (11.0-16.0); White Blood Count 14.3 X10*3/uL (4.8-10.8)
[2021-11-12 07:34] LABS: Anion Gap 15 (12-20); Blood Urea Nitrogen 31 mg/dL (9-16); Calcium 9.1 mg/dL (8.4-10.2); Carbon Dioxide 32 mmol/L (22-29); Chloride 104 mmol/L (96-108); Creatinine Clr Calc Pharmacy 39.4; Estimated Glomerular Filt Rate 55; Glucose Random 140 mg/dL (60-115); Potassium 3.8 mmol/L (3.3-5.1); Sodium 147 mmol/L (135-145)
--- NOTE | 2021-11-12 08:25 | P.PNIM_ITS ---
Subjective Subjective Date of Service: 11/12/21 Interval History: f/u on pneumoni interval history:No respiratory distress, had a temp of 101 at 11 pm, remains on high amount of O2 at at 7 liters and sating 95%, Review of Systems no fever, +cough Physical Exam Vital Signs: Vital Signs: Last Vital Signs Temp 97.7 F 11/12/21 07:24 Pulse 76 11/12/21 07:24 Resp 18 11/12/21 07:24 BP 122/56 L 11/12/21 07:24 Pulse Ox 95 11/12/21 07:24 BMI result Body Mass Index 20.9 Const: Other: General: AO, no distress Resp: zurdo rhonchi, no wheezes, no accessory muslce use CVS: S1,S2, iregular GI: +BS, NT, no distention Skin: No rash Neuro: motor grossly intact Psych: appropriate affect Objective Data Active Medications Acetaminophen (Acetaminophen 325 Mg Tablet) 650 mg PO Q6H PRN PRN Reason: Pain, Mild (Pain Scale 1-3) Last Admin: 11/11/21 07:18 Dose: 650 mg Documented by: BILLIE Al Hydroxide/Mg Hydroxide (Magnesium Hydrox/Alum Hydrox 30 Ml Oral.Susp) 30 ml PO Q4H PRN PRN Reason: Heartburn/Nausea Last Admin: 11/11/21 07:18 Dose: 30 ml Documented by: BILLIE Aspirin (Aspirin Enteric Coated 81 Mg Tablet.Dr) 81 mg PO DAILY [facility] Last Admin: 11/11/21 07:20 Dose: 81 mg Documented by: BILLIE Atorvastatin Calcium (Atorvastatin Calcium 40 Mg Tablet) 40 mg PO BEDTIME [facility] Last Admin: 11/11/21 21:25 Dose: Not Given Documented by: SAMY Non-Admin Reason: NPO Calcium Carbonate/Cholecalciferol (Calcium + Vitamin D 250 Mg Tablet) 250 mg PO DAILY [facility] Last Admin: 11/11/21 07:19 Dose: 250 mg Documented by: SHERIEMA Furosemide (Furosemide 40 Mg Tablet) 40 mg PO DAILY [facility]; Protocol Last Admin: 11/11/21 07:20 Dose: 40 mg Documented by: SHERIEMA Piperacillin Sod/Tazobactam (Sod 3.375 gm/ Sodium Chloride) 50 mls @ 100 mls/hr IV Q6H [facility] Last Infusion: 11/12/21 06:41 Dose: 0 mls/hr Documented by: SAMY Losartan Potassium (Losartan Potassium 25 Mg Tablet) 25 mg PO DAILY [facility]; Protocol Last Admin: 11/11/21 07:19 Dose: 25 mg Documented by: BILLIE Melatonin (Melatonin 3 Mg Tablet) 3 mg PO BEDTIME PRN PRN Reason: Insomnia Metoprolol Tartrate (Metoprolol Tartrate 50 Mg Tablet) 50 mg PO BID [facility]; Prot ocol Last Admin: 11/11/21 21:22 Dose: 50 mg Documented by: SAMY Omeprazole (Omeprazole 20 Mg Capsule.Dr) 20 mg PO DAILY@0630 [facility] Last Admin: 11/12/21 06:10 Dose: Not Given Documented by: SAMY Non-Admin Reason: NPO Ondansetron HCl (Ondansetron Hcl 4 Mg/2 Ml Vial) 4 mg IVPUSH Q8H PRN PRN Reason: Nausea and Vomiting Prednisone (Prednisone 10 Mg Tablet) 10 mg PO DAILY [facility] Last Admin: 11/11/21 07:19 Dose: 10 mg Documented by: BILLIE Sodium Chloride (0.9 % Sodium Chloride Flush 3 Ml Syringe) 3 ml IVFLUSH QSHIFT [facility] Last Admin: 11/11/21 21:25 Dose: 3 ml Documented by: SAMY Warfarin Sodium (Warfarin Sodium 2 Mg Tablet) 2 mg PO SUMOWETHSA@1800 [facility] Last Admin: 11/10/21 17:00 Dose: 2 mg Documented by: BILLIE Warfarin Sodium (Warfarin Sodium 3 Mg Tablet) 3 mg PO TUFR@1800 [facility] Last Admin: 11/11/21 17:24 Dose: 3 mg Documented by: BILLIE Labs CBC & Chem 7: 11/12/21 06:03 11/12/21 06:03 Labs: Laboratory Results - last 24 hr 11/09/21 11/11/21 11/12/21 11:39 06:03 05:35 WBC 12.8 H MCV MCH MCHC RDW Plt Count MPV Absolute Nucleated RBC Nucleated RBC % (auto) PT 37.2 H INR 3.2 H Anion Gap Estim Creat Clear Calc Estimated GFR Random Glucose Calcium B-Natriuretic Peptide 954 H 11/12/21 11/12/21 06:03 06:03 WBC 14.3 H MCV 86.9 MCH 25.4 L MCHC 29.3 L RDW 17.4 H Plt Count 229 MPV 10.7 Absolute Nucleated RBC 0.000 Nucleated RBC % (auto) 0.0 PT INR Anion Gap 15 Estim Creat Clear Calc 39.4 Estimated GFR 55 Random Glucose 140 H Calcium 9.1 B-Natriuretic Peptide Microbiology Microbiology Results: Microbiology 11/09/21 12:59 Blood Culture - Preliminary Blood - Venous No growth after 48 hours. 11/09/21 12:37 Blood Culture - Preliminary Blood - Venous No growth after 48 hours. 11/09/21 Unknown Urine Culture - Final Urine Catheterized - Straight Catheter Enterococcus faecalis Assessment and Plan (1) Community acquired pneumonia: Status: Acute Plan 86/F with AFIB, stroke with dysphagia, chronic heart failure here with pneumonia, vianney aspriation type of pneumonia and element of acute on chronic systolic heart failure #Pneumonia, likely aspiration type--had a temp of 101 overnight and WBC is rising -she's NPO due to high risk of aspiration -CT of chest 11/11, non-specific finding -aspiration precaution, elevate HOB, apropriate dysphagia diet, speech swallow eval #Hypernatremia--d/t dehydration--start D5 #Chronic systolic heart failure--no acute failure, hold Lasix #Recent gout of right left big toe--Stop Prednisone #Chronic AFIB--rate controlled, INR is therapeutic, #Dysphagia--speech eval #HLD--Statin #HTN--continue Losartant, Metoprolol Need for inpatient: Need for IV Abx in high risk elderly pt at risk for sepsis, decomepensation and mortality--cinically has decompensated as stated above Quality Stroke Does the patient have a stroke diagnosis?: No VTE Prior VTE?: No VTE Risk Level:: Medical - moderate - high VTE Device Contraindication: Treatment Not Indicated VTE Drug Contraindication: N/A - Med Ordered
[2021-11-12] MEDS: Metoprolol Tartrate 50 MG TABLET PO (08:39)
[2021-11-12] MEDS: Losartan Potassium 25 MG TABLET PO (08:39)
[2021-11-12] MEDS: Aspirin Enteric Coated 81 MG TABLET.DR PO (08:40)
[2021-11-12] MEDS: Furosemide 40 MG TABLET PO (08:40)
[2021-11-12] MEDS: predniSONE 10 MG TABLET PO (08:40)
[2021-11-12] MEDS: 0.9 % Sodium Chloride Flush 3 ML SYRINGE IVFLUSH (08:42)
[2021-11-12] MEDS: Dextrose 5 % and 0.45 % NaCl 1,000 ML 80 ML IVCONT ×2 (10:25→21:08)
[2021-11-12 11:22] VITALS: BP 119/58; PULSE 63; RESP 18; TEMP 36.6; O2SAT 96
--- NOTE | 2021-11-12 11:36 | HE.PHANOTE ---
Zosyn Antbiotic Stewardship Pt had temperature overnight, WBC elevated, NPO and <48h of zosyn therapy. Continue zosyn for now.
[2021-11-12 15:31] VITALS: BP 129/58; PULSE 60; RESP 18; TEMP 36.6; O2SAT 97
[2021-11-12 19:36] VITALS: BP 137/63; PULSE 54; RESP 17; TEMP 36.5; O2SAT 96
[2021-11-12 23:51] VITALS: BP 137/65; PULSE 62; RESP 17; TEMP 36.3; O2SAT 94
[2021-11-13 03:12] VITALS: BP 150/68; PULSE 57; RESP 22; TEMP 37; O2SAT 93
[2021-11-13] MEDS: Piperacillin Sodium/Tazobactam 3.375 GM in 0.9 % Sodium Chloride 50 ML IV (05:29)
[2021-11-13 06:29] LABS: Hematocrit 41.4 % (37.0-47.0); Hemoglobin 11.5 g/dl (12.0-16.0); Mean Corpuscular HGB Conc 27.8 g/dl (31.0-35.0); Mean Corpuscular Hemoglobin 25.2 pg (27.0-33.0); Mean Corpuscular Volume 90.8 fL (80.0-98.0); Mean Platelet Volume 10.5 fL (9.4-12.3); Platelet Count 271 X10*3/uL (160-400); Red Blood Count 4.56 X10*6/uL (4.20-5.50); Red Cell Distribution Width 17.8 % (11.0-16.0); White Blood Count 18.3 X10*3/uL (4.8-10.8)
[2021-11-13 06:37] LABS: INTERNATIONAL NORM RATIO 4.3 (0.9-1.1); Prothrombin Time 50.3 SEC (9.9-13.0)
[2021-11-13 06:47] LABS: Anion Gap 17 (12-20); Blood Urea Nitrogen 31 mg/dL (9-16); Carbon Dioxide 28 mmol/L (22-29); Chloride 104 mmol/L (96-108); Creatinine Clr Calc Pharmacy 27.9; Estimated Glomerular Filt Rate 37; Glucose Random 270 mg/dL (60-115); Potassium 3.4 mmol/L (3.3-5.1); Sodium 146 mmol/L (135-145)
[2021-11-13 07:16] VITALS: BP 140/57; PULSE 89; RESP 20; TEMP 37.3; O2SAT 92
--- NOTE | 2021-11-13 08:32 | P.PNIM_ITS ---
Subjective Subjective Date of Service: 11/13/21 Interval History: f/u on pneumoni interval history:Respiratory status has become more labored overnight, more lethargic, appear to be gasping for air Review of Systems no fever, +cough resp distress Physical Exam Vital Signs: Vital Signs: Last Vital Signs Temp 99.2 F 11/13/21 07:16 Pulse 89 11/13/21 07:16 Resp 20 11/13/21 07:16 BP 140/57 H 11/13/21 07:16 Pulse Ox 92 11/13/21 07:16 BMI result Body Mass Index 20.9 Const: Other: General: lethargic, less responsive Resp: rhochi, shallow breathing CVS: S1,S2, iregular GI: +BS, NT, no distention Skin: No rash Neuro: motor grossly intact Psych: appropriate affect Objective Data Active Medications Acetaminophen (Acetaminophen 325 Mg Tablet) 650 mg PO Q6H PRN PRN Reason: Pain, Mild (Pain Scale 1-3) Last Admin: 11/11/21 07:18 Dose: 650 mg Documented by: BILLIE Al Hydroxide/Mg Hydroxide (Magnesium Hydrox/Alum Hydrox 30 Ml Oral.Susp) 30 ml PO Q4H PRN PRN Reason: Heartburn/Nausea Last Admin: 11/11/21 07:18 Dose: 30 ml Documented by: BILLIE Aspirin (Aspirin Enteric Coated 81 Mg Tablet.Dr) 81 mg PO DAILY [facility] Last Admin: 11/12/21 08:40 Dose: 81 mg Documented by: WALLY Atorvastatin Calcium (Atorvastatin Calcium 40 Mg Tablet) 40 mg PO BEDTIME [facility] Last Admin: 11/12/21 22:04 Dose: Not Given Documented by: SAMY Non-Admin Reason: NPO Calcium Carbonate/Cholecalciferol (Calcium + Vitamin D 250 Mg Tablet) 250 mg PO DAILY [facility] Last Admin: 11/12/21 10:38 Dose: Not Given Documented by: WALLY Non-Admin Reason: NPO Furosemide (Furosemide 40 Mg Tablet) 40 mg PO DAILY [facility]; Protocol Last Admin: 11/12/21 08:40 Dose: 40 mg Documented by: WALLY Piperacillin Sod/Tazobactam (Sod 3.375 gm/ Sodium Chloride) 50 mls @ 100 mls/hr IV Q6H [facility] Last Infusion: 11/13/21 06:03 Dose: 0 mls/hr Documented by: SAMY Dextrose/Sodium Chloride (D51/2ns) 1,000 mls @ 80 mls/hr IVCONT .[id number] [facility] Last Admin: 11/12/21 21:08 Dose: 80 mls/hr Documented by: SAMY Losartan Potassium (Losartan Potassium 25 Mg Tablet) 25 mg PO DAILY [facility]; Protocol Last Admin: 11/12/21 08:39 Dose: 25 mg Documented by: WALLY Melatonin (Melatonin 3 Mg Tablet) 3 mg PO BEDTIME PRN PRN Reason: Insomnia Metoprolol Tartrate (Metoprolol Tartrate 50 Mg Tablet) 50 mg PO BID [facility]; Protocol Last Admin: 11/12/21 22:04 Dose: Not Given Documented by: SAMY Non-Admin Reason: NPO Omeprazole (Omeprazole 20 Mg Capsule.Dr) 20 mg PO DAILY@0630 [facility] Last Admin: 11/13/21 05:33 Dose: Not Given Documented by: SAMY Non-Admin Reason: NPO Ondansetron HCl (Ondansetron Hcl 4 Mg/2 Ml Vial) 4 mg IVPUSH Q8H PRN PRN Reason: Nausea and Vomiting Prednisone (Prednisone 10 Mg Tablet) 10 mg PO DAILY [facility] Last Admin: 11/12/21 08:40 Dose: 10 mg Documented by: WALLY Sodium Chloride (0.9 % Sodium Chloride Flush 3 Ml Syringe) 3 ml IVFLUSH QSHIFT [facility] Last Admin: 11/12/21 23:28 Dose: Not Given Documented by: SAMY Non-Admin Reason: IV Running Warfarin Sodium (Warfarin Sodium 2 Mg Tablet) 2 mg PO SUMOWETHSA@1800 [facility] Last Admin: 11/12/21 17:11 Dose: Not Given Documented by: WALLY Non-Admin Reason: Physician Held Med Warfarin Sodium (Warfarin Sodium 3 Mg Tablet) 3 mg PO TUFR@1800 [facility] Last Admin: 11/11/21 17:24 Dose: 3 mg Documented by: BILLIE Labs CBC & Chem 7: 11/13/21 05:34 11/13/21 05:34 Labs: Laboratory Results - last 24 hr 11/13/21 11/13/21 11/13/21 05:34 05:34 05:34 MCV 90.8 MCH 25.2 L MCHC 27.8 L RDW 17.8 H Plt Count 271 MPV 10.5 Absolute Nucleated RBC 0.000 Nucleated RBC % (auto) 0.0 PT 50.3 H INR 4.3 H Anion Gap 17 Estim Creat Clear Calc 27.9 Estimated GFR 37 Random Glucose 270 H Calcium 9.0 Assessment and Plan (1) Aspiration pneumonia: Status: Acute (2) Acute respiratory failure with hypoxia: Status: Acute Plan 86/F with AFIB, stroke with dysphagia, chronic heart failure here with pneumonia, vianney aspriation type of pneumonia and element of acute on chronic systolic heart failure #Pneumonia, likely aspiration type..She is been having recurrent aspirations and now having increasing difficulty with breathing. She is on Zosyn and ispite of that seem to continue to decline. She is to remain NPO, I have discussed comfort care option with the son, and he thinks that is the best course of action and therefore stoppoing all meds. Morphine for comfort. Hospice consult, I don't think she's candidate for GIP at this time. #Acte hypoxix respriatory failure wiwth hypoxia due to above #Hypernatremia--d/t dehydration--start D5, sodium is 146 today #Chronic systolic heart failure--no acute failure, hold Lasix #Recent gout of right left big toe--Stop Prednisone #Chronic AFIB--rate controlled, INR is 4.3, hold coumadin #Dysphagia--speech eval, NPO for now #HLD--Statin #HTN--continue Losartant, Metoprolol Need for inpatient: Comfort care, will ask hospice to assesss for GIP, son not able to take care for her at home and apear to be iminent Quality Stroke Does the patient have a stroke diagnosis?: No VTE Prior VTE?: No VTE Risk Level:: Medical - moderate - high VTE Device Contraindication: Treatment Not Indicated VTE Drug Contraindication: N/A - Med Ordered
[2021-11-13] MEDS: Morphine Sulfate 2 MG/ML CARTRIDGE IVPUSH ×2 (09:56→14:23)
[2021-11-13 11:24] VITALS: BP 105/52; PULSE 56; RESP 20; TEMP 36.2; O2SAT 100
[2021-11-13 14:23] VITALS: RESP 20
[2021-11-13 15:50] VITALS: RESP 20
[2021-11-13] MEDS: 0.9 % Sodium Chloride Flush 3 ML SYRINGE IVFLUSH ×2 (18:19→19:54)
[2021-11-13 19:29] VITALS: BP 123/55; PULSE 63; RESP 18; TEMP 35.9; O2SAT 82
[2021-11-14 07:42] VITALS: BP 121/53; PULSE 76; RESP 18; TEMP 37; O2SAT 91
[2021-11-14] MEDS: 0.9 % Sodium Chloride Flush 3 ML SYRINGE IVFLUSH ×2 (07:49→15:33)
--- NOTE | 2021-11-14 08:28 | P.PNIM_ITS ---
Subjective Subjective Date of Service: 11/14/21 Interval History: f/u on pneumoni with respiratory distress, made comfort yesterday, but seem better today interval history: She is less labored, seem more comfortable. Review of Systems no fever, +cough resp distress Physical Exam Vital Signs: Vital Signs: Last Vital Signs Temp 98.6 F 11/14/21 07:42 Pulse 76 11/14/21 07:42 Resp 18 11/14/21 07:42 BP 121/53 L 11/14/21 07:42 Pulse Ox 91 L 11/14/21 07:42 BMI result Body Mass Index 20.9 Const: Other: General: lethargic, less responsive Resp: rhochi, shallow breathing CVS: S1,S2, iregular GI: +BS, NT, no distention Skin: No rash Neuro: motor grossly intact Psych: appropriate affect Objective Data Active Medications Haloperidol Lactate (Haloperidol Lactate 10 Mg/5 Ml Oral.Conc) 0.5 mg PO Q4H PRN PRN Reason: Anxiety/Restlessness/Delirium Lorazepam (Lorazepam 2 Mg/Ml Vial) 0.25 mg IVPUSH Q6H PRN PRN Reason: Anxiety Morphine Sulfate (Morphine Sulfate 2 Mg/Ml Cartridge) 2 mg IVPUSH Q2H PRN PRN Reason: Discomfort/Shortness of breath Last Admin: 11/13/21 14:23 Dose: 2 mg Documented by: WALLY Sodium Chloride (0.9 % Sodium Chloride Flush 3 Ml Syringe) 3 ml IVFLUSH QSHIFT [facility]PL[facility]ED [facility] Last Admin: 11/14/21 07:49 Dose: 3 ml Documented by: COTEMA Labs CBC & Chem 7: 11/13/21 05:34 11/13/21 05:34 Assessment and Plan (1) Acute respiratory failure with hypoxia: Status: Acute (2) Aspiration pneumonia: Status: Acute Plan 86/F with AFIB, stroke with dysphagia, chronic heart failure here with pneumonia, rominaley aspriation type of pneumonia and element of acute on chronic systolic heart failure #Pneumonia, likely recurrent aspiration type..She is been having recurrent aspirations and now having increasing difficulty with breathing. She is on Zosyn and ispite of that seem to continue to decline. She is to remain NPO, I have discussed comfort care option with the son, and he thinks that is the best course of action and therefore stopped all meds. Morphine for comfort. Hospice consult, I don't think she's candidate for GIP at this time. #Acte hypoxix respriatory failure wiwth hypoxia due to above #Hypernatremia--d/t dehydration--start D5, sodium is 146 today #Chronic systolic heart failure--no acute failure, hold Lasix #Recent gout of right left big toe--Stop Prednisone #Chronic AFIB--rate controlled, INR is 4.3, hold coumadin #Dysphagia--speech eval, NPO for now #HLD--Statin #HTN--continue Losartant, Metoprolol Need for inpatient: Comfort care, will ask hospice to assesss for GIP, will check with son again if able [facility] Quality Stroke Does the patient have a stroke diagnosis?: No VTE Prior VTE?: No VTE Risk Level:: Medical - moderate - high VTE Device Contraindication: Treatment Not Indicated VTE Drug Contraindication: N/A - Med Ordered
--- NOTE | 2021-11-14 10:14 | MHC.CM.PN ---
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 CLARITZA APPEARS TO BE CONFUSED W/[facility]/HOSPICE HE IS VERY PERSEVERATIVE ON PT'S COUMADIN AND GOING TO THE COUMADIN CLINIC, HOW PT WILL BE FED, ETC.. PT DOES NOT WANT HIS BROTHER HE DOES NOT HELP W/PT'S CARE, CLARITZA DID REPORT HIS BROTHER WAS ON BOARD W/HOSPICE HOWEVER WOULD NOT BE ASSISTING CLARITZA W/CARE. CM MET CLARITZA IN LENGTH AND CLARITZA STILL DOES NOT SEEM TO UNDERSTAND [facility]/HOSPICE MEANS, CLARITZA HAS LEFT UNIT TO GO TO TALK W/STAFF AT THE COUMADIN CLINIC.
[2021-11-14 10:57] VITALS: RESP 22
[2021-11-14] MEDS: Morphine Sulfate 2 MG/ML CARTRIDGE IVPUSH ×3 (10:57→18:25)
--- NOTE | 2021-11-14 11:22 | MHC.CLN ---
F/U REVIEWED MD NOTE 11/14. 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 HOSPICE CONSULT. RD TO FOLLOW NEEDED.
[2021-11-14 11:53] VITALS: RESP 16
--- NOTE | 2021-11-14 13:22 | MHC.SLORD ---
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 Pt made NPO after O2 sats dropped significantly during breakfast on 11/12/clinical signs of aspiration. Pt's son/caregiver not present today, Pt sleeping. Will re-attempt to see tomorrow a.m.
[2021-11-14 13:34] VITALS: RESP 24
--- NOTE | 2021-11-14 13:53 | MHC.CM.PN ---
THIS CM RECEIVED CALL FROM PT'S SON/HCP CLARITZA WHO REPORTS HE WOULD LIKE TO TAKE PT HOME AND HE HAS SPOKEN TO [facility] ABOUT MAKING SURE HE HAS COVERAGE FOR PT AND MORE RELIABLE STAFF, CLARITZA WOULD LIKE HOSPICE WELL AND REFERRAL HAS BEEN PLACED TO [facility]. CM SPOKE TO LIAISON WHO WILL REACH OUT TO CLARITZA CELL [phone].
[2021-11-14] MEDS: LORazepam 2 MG/ML VIAL 0.25 MG IVPUSH (14:27)
[2021-11-14 14:46] VITALS: RESP 20
--- NOTE | 2021-11-14 16:06 | MHC.CM.PN ---
THIS CM RECEIVED MESSAGE FROM GRADALL OPERATOR THAT HOSPICE INFORMATIONAL WILL TAKE PLACE HERE AT [facility] AT 0900 TOMORROW MORNING.
[2021-11-15] MEDS: 0.9 % Sodium Chloride Flush 3 ML SYRINGE IVFLUSH (06:54)
--- NOTE | 2021-11-15 08:10 | P.PNIM_ITS ---
Subjective Subjective Date of Service: 11/15/21 Interval History: f/u on pneumoni with respiratory distress, made comfort yesterday, but seem better today interval history: Pretty much unresponsive this morning, non labored breathing Review of Systems Review of Systems: Yes Unobtainable due to mental status Physical Exam Vital Signs: Vital Signs: Last Vital Signs Temp 98.6 F 11/14/21 07:42 Pulse 76 11/14/21 07:42 Resp 20 11/14/21 14:46 BP 121/53 L 11/14/21 07:42 Pulse Ox 91 L 11/14/21 07:42 BMI result Body Mass Index 20.9 Const: Other: General: lethargic, less responsive Resp: rhochi, shallow breathing CVS: S1,S2, iregular GI: +BS, NT, no distention Skin: No rash Neuro: motor grossly intact Psych: appropriate affect Objective Data Active Medications Haloperidol Lactate (Haloperidol Lactate 10 Mg/5 Ml Oral.Conc) 0.5 mg PO Q4H MA N PRN Reason: Anxiety/Restlessness/Delirium Lorazepam (Lorazepam 2 Mg/Ml Vial) 0.25 mg IVPUSH Q6H PRN PRN Reason: Anxiety Last Admin: 11/14/21 14:27 Dose: 0.25 mg Documented by: COTEMA Morphine Sulfate (Morphine Sulfate 2 Mg/Ml Cartridge) 2 mg IVPUSH Q2H PRN PRN Reason: Discomfort/Shortness of breath Last Admin: 11/14/21 18:25 Dose: 2 mg Documented by: COTEMA Sodium Chloride (0.9 % Sodium Chloride Flush 3 Ml Syringe) 3 ml IVFSH [facility] Last Admin: 11/15/21 06:54 Dose: 3 ml Documented by: COTEMA Labs CBC & Chem 7: 11/13/21 05:34 11/13/21 05:34 Microbiology Microbiology Results: Microbiology 11/09/21 12:59 Blood Culture - Final Blood - Venous No growth after 5 days. 11/09/21 12:37 Blood Culture - Final Blood - Venous No growth after 5 days. Assessment and Plan (1) Acute respiratory failure with hypoxia: Status: Acute (2) Aspiration pneumonia: Status: Acute Plan 86/F with AFIB, stroke with dysphagia, chronic heart failure here with pneumonia, vianney aspriation type of pneumonia and element of acute on chronic systolic heart failure #Pneumonia, likely recurrent aspiration type..She is been having recurrent aspirations and now having increasing difficulty with breathing. She is on Zosyn and ispite of that seem to continue to decline. She is to remain NPO, I have discussed comfort care option with the son, and he thinks that is the best course of action and therefore stopped all meds. Morphine for comfort. Hospice consult, I don't think she's candidate for GIP at this time. --Continue comofort care measures, hospice intake with son today. Quality Stroke Does the patient have a stroke diagnosis?: No VTE Prior VTE?: No VTE Risk Level:: Medical - moderate - high VTE Device Contraindication: Treatment Not Indicated VTE Drug Contraindication: N/A - Med Ordered
[2021-11-15] MEDS: Morphine Sulfate 2 MG/ML CARTRIDGE IVPUSH ×4 (09:43→19:20)
--- NOTE | 2021-11-15 09:56 | MHC.CM.PN ---
THIS CM MET W/DELIVERY SUPERVISOR AFTER HOSPICE INFORMATIONAL DONE W/BOTH SONS AT BEDSIDE, PER LIAISON PT WILL NEED A SAME DAY HOSPICE ADMISSION WHICH THEY WILL NEED TO DO TOMORROW D/T STAFFING, NEW MOLST WILL ALSO NEED TO BE COMPLETED W/FAMILY PRIOR TO D/C AND THIS CM HAS NOTIFIED HOSPITALIST VIA [employer].
--- NOTE | 2021-11-15 14:07 | P.CDIC_ITS ---
CDI Concurrent Query Documentation Clarification: PHYSICIAN'S DOCUMENTATION REQUEST Date of Query: 11/15/21 1401 Patient Name: Yudelka Gomez Admit Date: 11/09/21 Dear Doctor, A review of the medical record indicates additional documentation may be needed. Please review below and update the documentation accordingly. Clinical Indicators: The following information is noted in the medical record: Risk Factors/Clinical Indicators/Treatments Per MD progress note 11/15/21: unresponsive, lethargic and less responsive Made RECTIFICATION PRINTER on 11/13/21 Based on the above, could you clarify in the Progress Notes which, if any of the following, best reflects the patient's level of consciousness? * Unconscious * Comatose * Persistent vegetative state * Other (please specify) * Unable to determine Use of terms such as suspected, likely, concern for, or probable (associated with a specific diagnosis that is being evaluated, monitored, or treated as if it exists) are acceptable and can be coded in the inpatient setting, when documented at the time of discharge. Thank you, Brittanie Yoo RN Extension: [phone] Please use your independent medical judgment in providing your response. THIS QUERY IS PART OF THE PERMANENT MEDICAL RECORD Provider Response: Other (Unconscious) Other Diagnosis: unconscious
[2021-11-15 14:33] VITALS: RESP 20
--- NOTE | 2021-11-15 16:15 | MHC.CM.PN ---
MOLST FORM COMPLETED W/PT'S SON/HCP CLARITZA AND SIGNED BY HOSPITALIST, PT'S SON REQUESTED AND GIVEN A COPY AND COPY OF HCP ON FILE WHICH HE DID NOT HAVE AT HOME. CM VERIFIED PT'S PHARMACY MAY NOT BE ABLE TO GET BOTH MORPHINE AND ATIVAN PT HAS BEEN RECEIVING WHILE INPT, PER PT'S SON HE PREFERS [facility] [address] FOR NEW PREFERRED [facility]ACY AND THIS CM HAS PROVIDED [facility] WITH PT'S DEMOGRAPHICS AND INSURANCE INFO, SON AWARE SCRIP[facility] WILL NOT BE SENT UNTIL DAY OF D/C. CM WILL FOLOW UP W/NA HOSPICE AND PT'S SON IN AM TO FINALIZE DETAILS.
--- NOTE | 2021-11-15 16:46 | MHC.SL.SWA ---
Speech Pathologist Impression: Risk of Aspiration Due to: Medically Fragile Neurological Condition History of Pneumonia Reduced Cognition Dysphasia Diet Status: NPO Liquid Consistency and Strategies for Safe Swallow: Liquid Intake Recommendation: NPO Liquid Intake Strategies: Solid Food Consistency: Dietary Recommendations: NPO Additional Modifications to Solid Foods: Oral Medication Intake: NPO Please contact the pharmacy regarding appropriate crushable or liquid drug formulations that are available whenever modified delivery is recommended. Compensatory Strategies and Precautions to be Taken for Safe Swallow: Sitting Upright (90 deg) Liquids from Spoon Alternate Liquids/Solids Rate of Ingestion Change Oral Check Supervision While Eating and Drinking for Safe Swallow: P/O w/ MECHANIC INSULATOR only Foods to Avoid: Swallowing Recommended Treatments: Compens. Strategy Educat. Recommendation for Speech: Inpatient Speech Therapy Comment: Pt was made NPO on 11/11 due to concerns about aspiration (O2 Sats declined during meal, wet cough present). Over weekend of 11/12- Pt was placed on TYING MACHINE OPERATOR LUMBER. Family is currently pursuing D/C w/hospice care. Pt was awake today, said Hello when therapist greeted her. Pt was given oral care, w/ no swallow elicited on trace amounts of liquid introduced by swab noted, no tongue lateralization on stimulation w/ swab. Discussed risk of aspiration on food trials w/son who was present, w/decision not to attempt. Recommend continue NPO at this time w/regular oral care, small amts. of liquid by swab or ice chips for comfort. Frequency/Duration: Date Range for Service Req: Timeline to reassess: Shingle Cutter Clinican/Clinical Fellow: No Supervisory Statement: I have reviewed and agree with the student/clinical fellow's documentation: N/A Speech Language Pathologist: Lila Talbert M.A., CCC-MECHANIC INSULATOR
[2021-11-15 16:53] VITALS: RESP 22
[2021-11-15] MEDS: LORazepam 2 MG/ML VIAL 0.25 MG IVPUSH (17:05)
--- NOTE | 2021-11-15 21:41 | PM.DS ---
DS: Providers Provider Date of Service: 11/15/21 Date of admission: 11/09/21 15:05 Primary care physician: Serafin Garcia MD DS: Diagnosis Discharge Diagnosis (1) Acute respiratory failure with hypoxia: Status: Acute (2) Aspiration pneumonia: Status: Acute DS: Summary Hospital Course Hospital Course: see debora. Patient on 11/15/21 at 9.35 pm Time Spent with Patient Time attestation: Total time spent providing and/or coordinating discharge services: Discharge coordination time: Less than 30 minutes Quality: Safe Use of Opioids Does Pt have an Active Cancer Diagnosis on the Problem List?: No Quality: Stroke Does the patient have a stroke diagnosis?: No Physical Exam Vital Signs: Vital Signs: Last Vital Signs Temp 98.6 F 11/14/21 07:42 Pulse 76 11/14/21 07:42 Resp 22 H 11/15/21 16:53 BP 121/53 L 11/14/21 07:42 Pulse Ox 91 L 11/14/21 07:42 BMI result Body Mass Index 20.9 Discharge Plan Discharge Date/Time: 11/15/21 21:35 Patient Disposition: Discharge Diagnosis: Aspiration PNA Referrals: Serafin Garcia MD [Primary Care Provider] - 1 Week Discharge Medications: No Action calcium carbonate-vitamin D3 [Calcium 600 + D(3)] 600 mg-10 mcg (400 unit) Tablet 1 tab PO DAILY warfarin 3 mg tablet 3 mg PO TUFR@1800 Protocol: Dose Management Condition: Sunday (Week One) Dose/Route: 2 mg Instruction: 1 x 2 mg tablet Condition: Sunday Dose/Route: 2 mg Instruction: 1 x 2 mg tablet Condition: Sunday Dose/Route: 2 mg Instruction: 1 x 2 mg tablet Condition: Sunday Dose/Route: 2 mg Instruction: 1 x 2 mg tablet Condition: Dose/Route: 2 mg Instruction: 1 x 2 mg tablet Condition: Sunday Dose/Route: 2 mg Instruction: 1 x 2 mg tablet Condition: Sunday Dose/Route: 2 mg Instruction: 1 x 2 mg tablet Condition: Sunday (Week Two) Dose/Route: 2 mg Instruction: 1 x 2 mg tablet Condition: Sunday Dose/Route: 2 mg Instruction: 1 x 2 mg tablet Condition: Sunday Dose/Route: 2 mg Instruction: 1 x 2 mg tablet Condition: Sunday Dose/Route: 2 mg Instruction: 1 x 2 mg tablet Condition: Dose/Route: 2 mg Instruction: 1 x 2 mg tablet Condition: Sunday Dose/Route: 2 mg Instruction: 1 x 2 mg tablet Condition: Sunday Dose/Route: 2 mg Instruction: 1 x 2 mg tablet Protocol Text: Adjustment Start Date: Sunday11/08/21 INR Value: 2.9 INR Date: 11/08/21 Recheck Date: 11/11/21 Additional Instructions: INR is in range continue same dosing Rx Instructions: 3MG EVERY TUE AND FRI warfarin 2 mg tablet 2 mg PO SUMOWETHSA@1800 Protocol: Dose Management Condition: Sunday (Week One) Dose/Route: 2 mg Instruction: 1 x 2 mg tablet Condition: Sunday Dose/Route: 2 mg Instruction: 1 x 2 mg tablet Condition: Sunday Dose/Route: 2 mg Instruction: 1 x 2 mg tablet Condition: Sunday Dose/Route: 2 mg Instruction: 1 x 2 mg tablet Condition: Dose/Route: 2 mg Instruction: 1 x 2 mg tablet Condition: Sunday Dose/Route: 2 mg Instruction: 1 x 2 mg tablet Condition: Sunday Dose/Route: 2 mg Instruction: 1 x 2 mg tablet Condition: Sunday (Week Two) Dose/Route: 2 mg Instruction: 1 x 2 mg tablet Condition: Sunday Dose/Route: 2 mg Instruction: 1 x 2 mg tablet Condition: Sunday Dose/Route: 2 mg Instruction: 1 x 2 mg tablet Condition: Sunday Dose/Route: 2 mg Instruction: 1 x 2 mg tablet Condition: Dose/Route: 2 mg Instruction: 1 x 2 mg tablet Condition: Sunday Dose/Route: 2 mg Instruction: 1 x 2 mg tablet Condition: Sunday Dose/Route: 2 mg Instruction: 1 x 2 mg tablet Protocol Text: Adjustment Start Date: Sunday11/08/21 INR Value: 2.9 INR Date: 11/08/21 Recheck Date: 11/11/21 Additional Instructions: INR is in range continue same dosing Rx Instructions: 3MG EVERY TUES AND FRI, 2MG EVERY SAT SUN Sun losartan 25 mg tablet 25 mg PO DAILY atorvastatin 40 mg tablet 40 mg PO DAILY omeprazole 20 mg capsule,delayed release(DR/EC) 20 mg PO DAILY metoprolol tartrate 50 mg tablet 50 mg PO BID aspirin 81 mg tablet,delayed release (DR/EC) 81 mg PO DAILY furosemide 20 mg tablet 40 mg PO DAILY prednisone 10 mg tablet 10 mg PO DAILY Rx Instructions: 20MG X3, 15MG X 3, 10MG X 1 Discharge Date/Time: 11/16/21 00:37
--- NOTE | 2021-11-15 22:08 | PM.DDS ---
Discharge Sum: Prov Provider Primary care physician: Serafin Garcia MD Discharge Sum: Diag Contributing Factors (1) Acute respiratory failure with hypoxia: (2) Aspiration pneumonia: Discharge Sum: Summary Date and Time Date of admission: 11/09/21 15:05 Summary Details: Date of Service/Date of : 11/09/2021 Chief Complaint: wet cough 86? year old female with AFIB resulting in stroke that has affected left side and speech including disphagia, on dysphagia diet, history of CHF NOS, she lives at home with son who was with her at bedside and states that she has been having wet cough for the last? couple of days and also has noted swelling in the legs. Recently labs work showed high sodium so? PCP --Dr Garcia advise holding lasix, she has also recently been treated for acute gout of? left big toe and has been on prednisone batsheva with improvment.? Hospital course: Essentially the patient has history of AFIB, stroke with dysphagia, chronic heart failur and presented with cough and noted to have pneumonia, likley aspriation type of pneumonia and element of acute on chronic systolic heart failure. Despite agresive treated with diuretics for heart failure and antibiotics for pneumonia, she continues to decline with worsening respiratory condition and becoming more and more unconscious and eventually slipping into coma, following discussing with son (HCP), a decision was made for hospice and comfort care only as that is what the patient would have wanted is such a circumstance. She before she could return home as has been arranged. Final diagnosis: #Aspiration pneumonia #Acute on chronic sysotlic heart failure #Unconsciousness/coma #Recent gout of right left big toe-- #Chronic AFIB #Dysphagia- #HLD--Statin #HTN--continue Losartant, Metoprolol I was not in attendance at the time of but was the attending on record Additional Data Attending physician: Rian Shrestha MD
== END 2021-11-16 00:37 | disposition expired | DRG 177 ==
LOC: HO.ED 16:08 → HO.EDOVER 16:12 → HO.S3 16:55
PROVIDERS: Physician Assistant; Admitting Provider Internal Medicine; Emergency Provider Emergency Medicine; PCP Internal Medicine; Visit Provider Internal Medicine
DX: J69.0 Pneumonitis due to inhalation of food and vomit (principal); I50.23 Acute on chronic systolic (congestive) heart failure; J96.01 Acute respiratory failure with hypoxia; R40.20 Unspecified coma; I48.20 Chronic atrial fibrillation, unspecified; I69.354 Hemiplegia and hemiparesis following cerebral infarction affecting left non-dominant side; E87.0 Hyperosmolality and hypernatremia; I11.0 Hypertensive heart disease with heart failure; M10.9 Gout, unspecified; I69.391 Dysphagia following cerebral infarction; R13.10 Dysphagia, unspecified; E86.0 Dehydration; Z51.5 Encounter for palliative care; Z20.822 Contact with and (suspected) exposure to COVID-19; Z95.2 Presence of prosthetic heart valve; Z95.0 Presence of cardiac pacemaker; Z87.891 Personal history of nicotine dependence; Z79.01 Long term (current) use of anticoagulants; Z79.52 Long term (current) use of systemic steroids; Z79.82 Long term (current) use of aspirin; Z79.899 Other long term (current) drug therapy
CPT/HCPCS: 0241U; 36415; 71045; 71250; 80048; 80053; 81001; 83605; 83880; 84484; 85025; 85027; 85610; 85730; 87040; 87086; 87088; 87186; 92526; 92610; 93005; 96365; 96367; 96375; 99285; C1758; J0456; J0696; J1940; J2060; J2270; J2543

== ENCOUNTER → 2021-11-11 09:00 | Outpatient (BNVA) | payer MEDICARE, SELFPAY | PROVIDERS: PCP Internal Medicine; Visit Provider Internal Medicine | DX: Z13.89 Encounter for screening for other disorder (principal) ==